=== PATIENT | female | born 1985 | race Caucasian/White ===

== ENCOUNTER 2022-01-04 13:32 | Outpatient (CLI) | payer OTHER, SELFPAY ==
[2022-01-04 21:24] LABS: Albumin* 4.7 g/dL (3.3-5.0); Chloride* 99 mmol/L (96-114); Sodium* 137 mmol/L (135-149)
[2022-01-04 21:25] LABS: Potassium* 3.4 mmol/L (3.6-5.1)
[2022-01-04 21:27] LABS: Bilirubin Direct* 0.2 mg/dL (0.0-0.5); Bilirubin Total* 0.7 mg/dL (0.1-1.5); Carbon Dioxide* 30 mmol/L (20-32); Creatinine* 0.6 mg/dL (0.5-1.5); Estimated Glomerular Filt Rate 118 ml/min; Total Protein* 7.6 g/dL (6.0-8.3)
[2022-01-04 21:28] LABS: Alanine Aminotransferase* 21 U/L (4-35); Alkaline Phosphatase* 59 U/L (40-150); Aspartate Amino Transferase* 29 U/L (12-35); Blood Urea Nitrogen* 13 mg/dL (5-24); Calcium* 9.6 mg/dL (8.4-10.6); Glucose* 92 mg/dL (60-115)
--- OUTSIDE RECORDS SUMMARY | 2022-01-11 23:15 | XMS_ITS | Encounter Summary ---
:1985 Author Organization [facility] Address [address] [place] [address] Care Team Providers Name Role Phone Augusto Robles, B.Brown., B.A.O. Primary Care Provider +1- [phone] Encounter Details Date Type Department Care Team Description 09/27/2020 Admin Visit Department of Family Medicine, [facility] [place] in [place], [place] [address] [place] [address] Social History Tobacco Use Types Packs/Day Years Used Date Smoking Tobacco: Never Assessed Alcohol Habits Answer Date Recorded How often do you have a drink containing alcohol? Monthly or less 08/17/2021 How many drinks containing alcohol do you have on a 1 or 2 08/17/2021 typical day when you are drinking? How often do you have six or more drinks on one Never 08/17/2021 occasion? Comment: Not asked Social Isolation Answer Date Recorded In a typical week, how many times do you More than three luis angel es a week 08/17/2021 talk on the phone with family, friends, or neighbors? How often do you get together with friends More than three t imes a week 08/17/2021 or relatives? How often do you attend catholic or Never 2021 jew services? Do you belong to any clubs or Yes 08/17/2021 organizations such as catholic groups, unions, fraternal or athletic groups, or school groups? How often do you attend meetings of the More than 4 times pe r year 08/17/2021 clubs or organizations you belong to? Are you now , , , Never 08/17/2021 , never or living with a partner? Physical Activity Answer Date Recorded On average, how many days per week do you engage in moderate to 3 days 08/17/2021 strenuous exercise (like walking fast, running, jogging, dancing, swimming, biking, or other activities that cause a light or heavy sweat)? On average, how many minutes do you engage in exercise at th is 120 min 08/17/2021 level? Stress Answer Date Recorded Do you feel stress - tense, restless, nervous, or anxious, N ot at all 08/17/2021 or unable to sleep at night because your mind is troubled all the time - these days? Financial Resource Strain Answer Date Recorded How hard is it for you to pay for the very basics like Not h eris at all 08/17/2021 food, housing, medical care, and heating? Intimate Partner Violence Answer Date Recorded Within the last year, have you been afraid of your partner o r No 08/17/2021 ex-partner? Within the last year, have you been humiliated or emotionall y No 08/17/2021 abused in other ways by your partner or ex-partner? Within the last year, have you been kicked, hit, slapped, or No 08/17/2021 otherwise physically hurt by your partner or ex-partner? Within the last year, have you been raped or forced to have any No 08/17/2021 kind of sexual activity by your partner or ex-partner? Food Insecurity Answer Date Recorded Within the past 12 months, you worried that your food would Never true 08/17/2021 run out before you got money to buy more. Within the past 12 months, the food you bought just didn't N ever true 08/17/2021 last and you didn't have money to get more. Transportation Needs Answer Date Recorded In the past 12 months, has lack of transportation kept you f rom No 08/17/2021 medical appointments or from getting medications? In the past 12 months, has lack of transportation kept you f rom No 08/17/2021 meetings, work, or getting things needed for daily living? Housing Stability Answer Date Recorded In the last 12 months, was there a time when you were not ab le No 08/17/2021 to pay the mortgage or rent on time? In the last 12 months, how many places have you lived? 1 08/17/2021 In the last 12 months, was there a time when you did not hav e a No 08/17/[address] or slept in a half-way (including now)? Sex Assigned at Date Recorded Female 08/17/2021 7:54 AM CDT documented as of this encounter Plan of Treatment Not on filedocumented as of this encounter Visit Diagnoses Not on filedocumented in this encounter Additional Health Concerns Infection Onset Date Last Indicated Resolved Time COVID19 Pending 09/26/2020 09/27/2020 09/27/2020 2:51 PM CDT documented as of this encounter Care Teams Control Clerk Repairs Relationship Specialty Start Date End Date Augusto Robles M.B., B.Ch., B.A.O. PCP - General Family Medicine 02/28/20 [address] [place] [address] documented as of this encounter
--- OUTSIDE RECORDS SUMMARY | 2022-01-11 23:15 | XMS_ITS | Encounter Summary ---
:1985 Author Organization [facility] Address [address] [place] [address] Care Team Providers Name Role Phone Augusto Robles, B.Ch., B.A.O. Primary Care Provider [phone]- [phone] Encounter Details Date Type Department Care Team Description 10/13/2020 Orders Only RST PCP [facility] Augusto Robles, Screening Lipid; Denise.Tommie, B.Ch., B.A .O. Monitoring For Therapeutic Drug Therapy [address] [place] [address] (Wo rk) Social History Tobacco Use Types Packs/Day Years [...] or relatives? How often do you attend voodoo or Never 2021 episcopalian services? Do you belong to any clubs or Yes 08/17/2021 organizations such as voodoo groups, unions, fraternal or athletic groups, or [...] minutes do you engage in exercise at is 120 min 08/17/2021 level? Stress Answer [...] place to sleep or slept in a detention (including now)? Sex Assigned at Date Recorded Female 08/17/2021 7:54 AM CDT documented as of this encounter Plan of Treatment Not on filedocumented as of this encounter Visit Diagnoses Diagnosis Screening Lipid Monitoring For Therapeutic Drug Therapy documented in this encounter Care Teams Surgical Supply Assistant Relationship Specialty Start Date End Date Augusto Robles M.B., B.Ch., B.A.O. PCP - General Family Medicine 02/28/[address] [place] [address] documented as of this encounter
--- OUTSIDE RECORDS SUMMARY | 2022-01-11 23:15 | XMS_ITS | Encounter Summary ---
:1985 Author Organization [facility] Address [address] [place] [address] Care Team Providers Name Role Phone Augusto Robles, B., B.A.O. Primary Care Provider [phone]- [phone] Reason for Referral Outpatient (Routine) - Closed Specialty Diagnoses / Procedures Referred By Contact Refer red To Contact Diagnoses Obstruction Gastric Outlet (HCC) Abnormal Computed Tomography Abdomen Alcira Lanier M.D. [facility] Procedures EGD (EsophagealGastroDuodenoscopy) [address] [place] [address] Referral ID Status Reason Start Date Expiration Date Visits Requ ested Visits Authorized [id number] Closed 08/18/2021 08/18/2022 1 1 Reason for Visit Outpatient (Routine) - Closed Specialty Diagnoses / Procedures Referred By Contact Refer red To Contact Diagnoses Obstruction Gastric Outlet (HCC) Abnormal Computed Tomography Abdomen Alcira Lanier M.D. [facility] Procedures EGD (EsophagealGastroDuodenoscopy) [address] [place] [address] Referral ID Status Reason Start Date Expiration Date Visits Requ ested Visits Authorized [id number] Closed 08/18/2021 08/18/2022 1 1 Encounter Details Date Type Department Care Team Description 09/10/2021 Hospital Division of Alcira Lanier M.D. [address] [place] [address] Obstruction Gastric Outlet (HCC); Encounter Gastroenterology in [place], HEALTH PROFESSOR, APPLIANCE SERVICE TECHNICIAN, DNAP [address] [place] [address] Abnormal Computed Tomography Abdomen [place], [place] [address] [place] [address] Social History Tobacco Use Types Packs/Day Years Used Date Smoking Tobacco: Never Smokeless Tobacco: Never Alcohol Habits Answer Date Recorded How often [...] or relatives? How often do you attend pentecostal or Never 2021 church services? Do you belong to any clubs or Yes 08/17/2021 organizations such as pentecostal groups, unions, fraternal or athletic groups, or [...] place to sleep or slept in a custodial (including now)? Education Answer Date Recorded What is the highest level of school Associate degree: academ [employer] program 08/17/2021 you have completed or the highest degree you have received? Sex Assigned at Date Recorded Female 08/17/2021 7:54 AM CDT documented as of this encounter Medications at Time of Discharge Medication Sig Dispensed Refills Start Date End Date escitalopram (LEXAPRO) 20 mg Take 20 mg by 0 07/06 tablet mouth daily. HYDROCHLOROTHIAZIDE ORAL 0 06/05/2013 phentermine (ADIPEX-P) 37.5 mg Take 37.5 mg by 0 07/04/2021 tablet mouth daily. documented as of this encounter Plan of Treatment Not on filedocumented as of this encounter Procedures Procedure Name Priority Date/Time Associated Diagnosis Comme nts SURGICAL PATHOLOGY Routine 09/10/2021 12:37 PM Re sults for this CDT procedure are i n the results section. UPPER GI ENDOSCOPY Routine 09/10/2021 12:07 PM Obstruction Gas tric Results for this CDT Outlet (HCC) procedure are in Abnormal Computed the result s Tomography Abdomen section. EGD Routine 09/10/2021 12:07 PM Obstruction Gastric (ESOPHAGEALGASTRODU CDT Outlet (HCC) ODENOSCOPY) Abnormal Computed Tomography Abdomen documented in this encounter Results Surgical Pathology (09/10/2021 12:37 PM CDT) Component Value Ref Test Analysis Performed Pathologis t Range Method Time At Signature 09/14/2021 DTL 11:17 AM CDT Report Nacho Marroquin M.D. 09/14/2021 DTL electronically 11:17 AM signed by CDT I verify that I have examined all relevant slides/materials for the specimen(s) and rendered or confirmed the diagnosis. Gross Received in formalin labeled with patient's name, medical 09/14/2021 DTL Description record number and stomach, antrum, body of stomach, 11:17 AM incisura are four pale severino-pink irregular soft tissues, CDT ranging from 0.1-0.3 cm in greatest dimension. Specimens are submitted en toto in cassette A1. ??Grossed by LMB. Disclaimer This test was developed using an analyte specific reag ent. 09/14/2021 DTL Its performance characteristics were determined by [facility] 11:17 AM [facility] in a manner consistent with CLIA requirements. This CDT test has not been cleared or approved by the U.S. Food and Drug Administration. Interpretation FINAL DIAGNOSIS 09/14/2021 DTL A. Stomach, antrum, body of stomach, incisura, endoscopic 11:17 AM biopsy: ??Antral and fundic mucosa with mild chronic CDT inflammation. ??An immunohistochemical stain for Helicobacter pylori is negative. Specimen (Source) Anatomical Collection Method Collection Time Re ceived Time Location / / Volume Laterality Biopsy (Stomach) 09/10/2021 12:37 PM CDT Narrative This result has an attachment that is no t available. Diandra Thompson LAB SURG PATH ORDERAB LES Performing Organization Address City/State/ZIP Code Phon e Number [facility] - [address] [place], [place] [address] [facility] [place] [address] [facility] [address] Upper GI Endoscopy (09/10/2021 12:07 PM CDT) Specimen (Source) Anatomical Collection Method Collection Time Re ceived Time Location / / Volume Laterality 09/10/2021 12:07 PM CDT Impressions [facility] - 09/10/2021 12:54 PM CDT Post-op Diagnoses: ? - Normal esophagus. ? - Normal stomach. Biopsied. ? - Normal examined duodenum. ? - Esophagogastric landmarks ident ified. Narrative [facility] - 09/10/2021 12:54 PM CDT Gonda 2 GI Patient Name: Dian Mcneill Date of : 1985 Age: 35 Gender: Female Procedure Date: 09/10/2021 Procedure: ? Upper GI endoscopy Providers: ? Merissa Aparicio MD Referring Provider: ?Alcira avilez MD Pre-op Diagnoses: ?Abnormal CT of the GI tract Recommendation: ? - Return to referring physician a s previously scheduled. Findings: ? The esophagus was normal. ? The stomach was normal. Biopsies were taken with a cold forceps for ? Helicobacter pylori testing. ? The examined duodenum was normal. ? Esophagogastric landmarks were id entified: the Z-line was found at 40 ? cm, the upper extent of the gastr ic folds was found at 40 cm and the ? site of hiatal narrowing was foun d at 40 cm from the incisors. Procedural Details: ? The patient was seen, evaluated, history reviewed, airway and heart-lung ? exams were performed by licensed provider and were satisfactory for ? planned level of sedation care. ? The risks, benefits and alternati ves for the procedure and sedation were ? discussed and informed consent wa s obtained. A procedural pause was ? conducted in the presence of assi sting personnel to verify the correct ? patient identity and procedure to be performed. Throughout the ? procedure, the patient's blood pr essure, pulse, and oxygen saturations ? were monitored continuously. The Gastroscope was introduced through the ? mouth, and advanced to the third part of duodenum. The upper GI ? endoscopy was accomplished withou t difficulty. The patient tolerated the ? procedure well. Complications: ? No immedia te complications. Estimated Blood Loss: ?Estimated blo od loss was minimal. Attending Participation: I personally pe rformed the entire procedure. Diandra Aparicio MD 09/10/2021 12:54:13 PM This report has been signed electronical ly. Number of Addenda: 0 Note Initiated On: 09/10/2021 12:07 PM Alcira Lanier M.D. GI PROCEDURE ORDERABLES Performing Organization Address City/State/ZIP Code Phon e Number [employer] [place] [employer] [facility] documented in this encounter Visit Diagnoses Diagnosis Obstruction Gastric Outlet (HCC) Abnormal Computed Tomography Abdomen documented in this encounter Administered Medications Inactive Administered Medications - up to 3 most recent administrations Medication Order MAR Action Action Date Dose Rate Site lactated ringers Continued from OR 09/10/2021 12:58 PM 20 mL/hr 20 mL/hr 20 mL/hr, intravenous, CDT Continuous, Starting on Mon09/10/21 at 1245, PACU & Post-Op documented in this encounter Care Teams Clay Artisan Relationship Specialty Start Date End Date Augusto Robles M.B., B.Ch., B.A.O. PCP - General Family Medicine 02/28/[address] [place] [address] documented as of this encounter
--- OUTSIDE RECORDS SUMMARY | 2022-01-11 23:15 | XMS_ITS | Encounter Summary ---
:1985 Author Organization [facility] Address [address] [place] [address] Care Team Providers Name Role Phone Augusto Robles, B., B.A.O. Primary Care Provider [phone]- [phone] Reason for Referral Outpatient (Routine) - Closed Specialty Diagnoses / Procedures Referred By Contact Refer red To Contact Diagnoses Obstruction Gastric Outlet (HCC) Abnormal Computed Tomography Abdomen Alcira Lanier M.D. [facility] Procedures EGD (EsophagealGastroDuodenoscopy) [address] [place] [address] Referral ID Status Reason Start Date Expiration Date Visits Requ ested Visits Authorized [id number] Closed 08/18/2021 08/18/2022 1 1 Reason for Visit Reason Comments obstruction gastric outlet comp Outpatient (Routine) - Closed Specialty Diagnoses / Referred By Contact Referred To Contact Procedures Gastroenterology and Diagnoses Obstruction Gastric Outlet (HCC) Eliana Whyte [facility] Hepatli Kwon M.D. [address] [place] [address] Referral ID Status Reason Start Date Expiration Date Visits Requ ested Visits Authorized [id number] Closed 08/03/2021 08/03/2022 1 1 Encounter Details Date Type Department Care Team Description 08/18/2021 Comprehensive Visit Division of Griselda Whyte M.D. [address] [place] [address] Abnormal Computed Tomography Abdomen (Pr imary Dx); Gastroenterology in Alcira Lanier M.D. [address] [place] [address] Obstruction Gastric Outlet (HCC) [place], [place] [address] [place] [address] Social History Tobacco Use Types Packs/Day Years [...] or relatives? How often do you attend temple or Never 2021 jewish services? Do you belong to any clubs or Yes 08/17/2021 organizations such as temple groups, unions, fraternal or athletic groups, or [...] place to sleep or slept in a correction (including now)? Education Answer Date Recorded What is the highest level of school Associate degree: academ [employer] program 08/17/2021 you have completed or the highest degree you have received? Sex Assigned at Date Recorded Female 08/17/2021 7:54 AM CDT documented as of this encounter Last Filed Vital Signs Vital Sign Reading Time Taken Comments Blood Pressure 109/71 08/18/2021 9:38 AM CDT Pulse 95 08/18/2021 9:38 AM CDT Temperature - - Respiratory Rate - - Oxygen Saturation - - Inhaled Oxygen Concentration - - Weight 68.4 kg (150 lb 12.7 oz) 08/18/2021 9:38 AM CDT Height 182 cm (5' 11.65) 08/18/2021 9:38 AM CDT Body Mass Index 20.65 08/18/2021 9:38 AM CDT documented in this encounter H&P Notes Alcira Lanier M.D. - 08/18/2021 10:00 AM CDT SUBJECTIVE CHIEF COMPLAINT/REASON FOR VISIT Abnormal CT imaging of the abdomen. HISTORY OF PRESENT ILLNESS Dian is a 35-year-old young lady who has known history of the bilateral kidney stones dating back to 2014. She was managed with lithotripsy. Since then, she has had close followup for the kidney stones. Most recently on 07/22/2021, she again developed severe bilateral flank pain that led on to vomiting. She was seen in the emergency department. Based on the documented examination, her abdomen wasbenign. However, there was bilateral tenderness in the flanks, especially at the costovertebral angles. She was managed conservatively. In the emergency department, she underwent CT imaging of the abdomen that reported bilateral multiple small nonobstructing renal stones. The largest measured 5 mm. Also incidentally reported was markedly distended stomach with fluid and retained food. There was note that the proximal duodenum was also dilated. No other abnormality was noted. After recovering from this acute event of the bilateral flank pain which was associated with vomiting which she feels was related to severe pain, she has not had any nausea or vomiting since then. Her appetite is good. She denies any retrosternal burning sensation. No dysphagia or odynophagia. Denies use of NSAIDs. Took NSAIDs several years ago for an IUD related pain. No other gastrointestinal complaints. Her bowel habit pattern is normal. MEDICAL HISTORY 1. History of anxiety disorder. 2. History of nephrolithiasis status post lithotripsy. SOCIAL HISTORY She works in the daycare business. Denies smoking or use of alcohol. OBJECTIVE PHYSICAL EXAMINATION General: On examination, she is a healthy-appearing lady, appears very comfortable, in no obvious distress. There is no pallor or icterus. Abdomen: Soft, nondistended, nontender. No hepatosplenomegaly. Neuro: Neurologically she is awake, alert, and oriented x3. ASSESSMENT / PLAN A 35-year-old lady with known history of nephrolithiasis who presented to the emergency department with bilateral flank pain in July 2021 and was incidentally noted to have a dilated stomach with retained food and fluid. She is here for further evaluation. No history to suggest gastric outlet obstruction at present. No risk factors for peptic ulcer disease. Currently asymptomatic. PLAN: EGD for evaluation of the stomach with gastric biopsies to rule out H. pylori. Alcira Lanier M.D. CT CT Job ID: [id number] documented in this encounter Plan of Treatment Not on filedocumented as of this encounter Visit Diagnoses Diagnosis Abnormal Computed Tomography Abdomen - P rimary Obstruction Gastric Outlet (HCC) documented in this encounter Care Teams Documentation Improvement Specialist Relationship Specialty Start Date End Date Augusto Robles M.B., B.Ch., B.A.O. PCP - General Family Medicine 02/28/20 [address] [place] [address] documented as of this encounter
--- OUTSIDE RECORDS SUMMARY | 2022-01-11 23:15 | XMS_ITS | Encounter Summary ---
:1985 Author Organization [facility] Address [address] [place] [address] Care Team Providers Name Role Phone Augusto Robles, B.Brown., B.A.O. Primary Care Provider [phone] Encounter Details Date Type Department Care Team Description 09/09/2021 Lab Department of [facility] Sav Lanier M.D. Preprocedural Lab Exam [facility] [address] [facility] [address] [place] [address] [place] [address] [facility] [phone] Social History Tobacco Use Types Packs/Day Years [...] or relatives? How often do you attend mandaeism or Never 2021 adventist services? Do you belong to any clubs or Yes 08/17/2021 organizations such as mandaeism groups, unions, fraternal or athletic groups, or [...] place to sleep or slept in a penitentiary (including now)? Education Answer Date Recorded What is the highest level of school Associate degree: [employer] program 08/17/2021 you have completed or the highest degree you have received? Sex Assigned at Date Recorded Female 08/17/2021 7:54 AM CDT documented as of this encounter Plan of Treatment Not on filedocumented as of this encounter Procedures Procedure Name Priority Date/Time Associated Diagnosis Comme nts SARS CORONAVIRUS-2 Routine 09/09/2021 8:40 AM Preprocedural La b Exam Results for this RNA, V CDT procedure are i n the results section. documented in this encounter Results SARS Coronavirus-2 RNA, V Asymptomatic (09/09/2021 8:40 AM CDT) [facility] gist Method Time Signature SARS-CoV-2 Swab, 09/09/2021 MKTO Specimen Nasopharynx 11:30 PM Source CDT SARS CoV-2 Undetected Undetected 09/09/2021 MKTO RNA, TMA 11:30 PM CDT Comment: SARS-CoV-2 RNA absent. This result does not rule out COVID-19 in the patient, as the sensitivity of the test depends o n the timing of the specimen collection and the quality of the specim en. Result should be correlated with patient's history and clinical presentat ion. ----ADDITIONAL INFORMATION---- This molecular amplification test was pe rformed using the Aptima SARS-CoV-2 assay ([employer] on the Needchecks tem under emergency use authorization (EUA) by the U.S. Food and Drug Administ ration. Fact sheets for this EUA assay can be fo und at the following links: For Healthcare Providers: https://www.fd a.gov/media/115928/download For Patients: https://www.fda.gov/media/ 703742/download Specimen Anatomical Collection Method Collection Time Receive d Time (Source) Location / / Volume Laterality Varies 09/09/2021 8:40 AM 7:14 (Nasopharynx) CDT PM CDT Alcira Lanier M.D. LAB MICROBIOLOGY - GENERAL O CALLUM Performing Organization Address City/State/ZIP Code Phon e Number [facility]- [address] [place] [address] [place] [address] [address] documented in this encounter Visit Diagnoses Diagnosis Preprocedural Lab Exam documented in this encounter Additional Health Concerns Infection Onset Date Last Indicated Resolved Time COVID19 Pending 09/08/2021 09/09/2021 09/09/2021 11:30 PM CDT documented as of this encounter Care Teams Contractor Buyer Relationship Specialty Start Date End Date Augusto Robles M.B., B.Ch., B.A.O. PCP - General Family Medicine 02/28/20 [address] [place] [address] documented as of this encounter
--- OUTSIDE RECORDS SUMMARY | 2022-01-11 23:15 | XMS_ITS | Encounter Summary ---
:1985 Author Organization [facility] Address [address] [place] [address] Care Team Providers Name Role Phone Augusto Robles, BJudy, B.A.O. Primary Care Provider [phone] Reason for Referral Outpatient (Routine) - Authorized Specialty Diagnoses / Procedures Referred By Contact Refer red To Contact Family Medicine Augusto Robles M.B., [facility], B.A.O. [address] [place] [phone] Referral ID Status Reason Start Date Expiration Date Visits V isits Requested Authorized [id number] Authorized 10/20/2021 10/20/2022 1 1 Encounter Details Date Type Department Care Team Description 10/20/2021 Orders Only RST PCP TH Geovanna Salguero M.D. Monitoring For [address] [place] [address] [place]rapeutic [place] [phone] (Wo rk) Social History Tobacco Use Types [...] or relatives? How often do you attend muslim or Never 2021 mosque services? Do you belong to any clubs or Yes 08/17/2021 organizations such as muslim groups, unions, fraternal or athletic groups, or [...] place to sleep or slept in a [place] [facility] [place] (including now)? Education Answer Date Recorded What is the highest level of school Associate degree: [employer] program 08/17/2021 you have completed or the highest degree you have received? Sex Assigned at Date Recorded Female 08/17/2021 7:54 AM CDT documented as of this encounter Plan of Treatment Scheduled Orders Name Type Priority Associated Diagnoses Order S [facility] Basic Metabolic Panel Lab Routine Monitoring For Ther apeutic Expected: 11/03/2021, Drug Therapy Expires: 2021 Scheduled Referrals Name Type Priority Associated Diagnoses Order S [facility] Family Medicine Outpatient Referral Routine Expec yovani: office visit 11/03/2021, (clinic) Expires: 04/18/2022 documented as of this encounter Visit Diagnoses Diagnosis Monitoring For Therapeutic Drug Therapy documented in this encounter Care Teams Verify Rep Relationship Specialty Start Date End Date Augusto Robles M.B., B.Ch., B.A.O. PCP - General Family Medicine 02/28/20 [address] [place] [address] documented as of this encounter
--- OUTSIDE RECORDS SUMMARY | 2022-01-11 23:15 | XMS_ITS | Encounter Summary ---
:1985 Author Organization [facility] Address [address] [place] [address] Care Team Providers Name Role Phone Augusto Robles, B.Ch., B.A.O. Primary Care Provider [phone] Encounter Details Date Type Department Care Team Description 07/13/2021 Orders Only RST PCP HLTH MNT Augusto Robles M.B., B.C h., Screening Lipid B.A.O. [address] [place], [place] [phone] (Wo rk) Social History Tobacco Use Types [...] or relatives? How often do you attend buddhist or Never 2021 protestant services? Do you belong to any clubs or Yes 08/17/2021 organizations such as buddhist groups, unions, fraternal or athletic groups, or [...] place to sleep or slept in a alf (including now)? Sex Assigned at Date Recorded Female 08/17/2021 7:54 AM CDT documented as of this encounter Plan of Treatment Scheduled Orders Name Type Priority Associated Diagnoses Order S chedule Lipid Panel Lab Routine Screening Lipid Expected: , Expires: 01/09/2022 documented as of this encounter Visit Diagnoses Diagnosis Screening Lipid documented in this encounter Care Teams Assistant Project Manager Relationship Specialty Start Date End Date Augusto Robles M.B., B.Ch., B.A.O. PCP - General Family Medicine 02/28/20 [address] [place] [address] documented as of this encounter
--- OUTSIDE RECORDS SUMMARY | 2022-01-11 23:15 | XMS_ITS | Encounter Summary ---
:1985 Author Organization [facility] Address [address] [place] [address] Care Team Providers Name Role Phone Augusto Robles, B.Ch., B.A.O. Primary Care Provider [phone] Encounter Details Date Type Department Care Team Description 04/13/2021 Orders Only RST PCP HLTH MNT Augusto Robles M.B., B.C h., B.A.O. [address] [place], [place] [phone] (Wo rk) Social History [...] do you attend mandaeism or Never 2021 mormonism services? Do you belong to any clubs [...] place to sleep or slept in a [facility] (including now)? Sex Assigned at Date Recorded Female 08/17/2021 7:54 AM CDT documented as of this encounter Plan of Treatment Not on filedocumented as of this encounter Visit Diagnoses Not on filedocumented in this encounter Care Teams Club Attendant Relationship Specialty Start Date End Date Augusto Robles M.B., B.Ch., B.A.O. PCP - General Family Medicine 02/28/20 [address] [place] [address] documented as of this encounter
--- OUTSIDE RECORDS SUMMARY | 2022-01-11 23:15 | XMS_ITS | Encounter Summary ---
:1985 Author Organization [facility] Address [address] [place] [address] Care Team Providers Name Role Phone Augusto Robles, B., B.A.O. Primary Care Provider [phone] Reason for Referral Outpatient (Routine) - Closed Specialty Diagnoses / Referred By Contact Referred To Contact Procedures Gastroenterology and Diagnoses Obstruction Gastric Outlet (HCC) Eliana Whyte [facility] Hepatology Diomedes Kwon [address] [place] [address] Referral ID Status Reason Start Date Expiration Date Visits Requ ested Visits Authorized [id number] Closed 08/03/2021 08/03/2022 1 1 LE WRITER Encounter Details Date Type Department Care Team Description 08/03/2021 [facility] Eliana Whyte Obstruction Gastric AND FAUSTINO Kwon M.D. Outlet (HCC) [address] (Primary Dx) [place] [address] [phone] Social History Tobacco Use Types Packs/Day Years [...] or relatives? How often do you attend gnosticist or Never 2021 samaritan services? Do you belong to any clubs or Yes 08/17/2021 organizations such as gnosticist groups, unions, fraternal or athletic groups, or [...] place to sleep or slept in a prison (including now)? Sex Assigned at Date Recorded Female 08/17/2021 7:54 AM CDT documented as of this encounter Plan of Treatment Scheduled Referrals Name Type Priority Associated Order Schedule Diagnoses Gastroenterology & Outpatient Routine Obstruction Gastric Ex pected: Hepatology Referral Referral Outlet (HCC) 08/04/19 22 (Approximate), Expires: 11/03/2022 documented as of this encounter Visit Diagnoses Diagnosis Obstruction Gastric Outlet (HCC) - Prima ry documented in this encounter Care Teams Shearer Screen Measurer And Trimmer Relationship Specialty Start Date End Date Augusto Robles M.B., B.Ch., B.A.O. PCP - General Family Medicine 02/28/20 [address] [place] [address] documented as of this encounter
--- OUTSIDE RECORDS SUMMARY | 2022-01-11 23:15 | XMS_ITS | Encounter Summary ---
:1985 Author Organization [facility] Address [address] [place] [address] Care Team Providers Name Role Phone Augusto Robles, B., B.A.O. Primary Care Provider [phone] Reason for Visit Outpatient (Routine) - Canceled Specialty Diagnoses / Procedures Referred By Contact Refer red To Contact Diagnoses Stomach Functional [facility] Procedures [place] Fluoro Less Than 1 Hour [facility] [address] [place] [phone] Referral ID Status Reason Start Date Expiration Date Visits V isits Requested Authorized [id number] Canceled 09/10/2021 09/10/2022 1 1 Encounter Details Date Type Department Care Team Description 09/10/2021 Hospital Encounter Department of Desi, [facility] Functional Radiology, [facility] in [facility] [place], [place] [address] [place] [address] [address] [place] [phone] Social History Tobacco Use Types Packs/Day Years [...] or relatives? How often do you attend mu-ism or Never 2021 anabaptist services? Do you belong to any clubs or Yes 08/17/2021 organizations such as mu-ism groups, unions, fraternal or athletic groups, or [...] place to sleep or slept in a senior living (including now)? Education Answer Date Recorded What is the highest level of school Associate degree: [employer] program 08/17/2021 you have completed or the [...] as of this encounter Visit Diagnoses Diagnosis Stomach Functional Disorder documented in this encounter Care Teams Flotation Tender Relationship Specialty Start Date End Date Augusto Robles M.B., B.Ch., B.A.O. PCP - General Family Medicine 02/28/20 [address] [place] [address] documented as of this encounter
--- OUTSIDE RECORDS SUMMARY | 2022-01-11 23:15 | XMS_ITS | Encounter Summary ---
:1985 Author Organization [facility] Address [address] [place] [address] Care Team Providers Name Role Phone Augusto Robles, B., B.A.O. Primary Care Provider [phone] Encounter Details Date Type Department Care Team Description 09/10/2021 Anesthesia Event Division of Priya Worley APRN, TUBING MILL SETTER, DNAP [address] [place] [phone] [facility], TUBING MILL SETTER[facility] DNAP [address] [place] [phone] [place], [place] [address] [place] [phone] Anesthesia Record Procedure Summary Procedure Name Responsible Anesthesia Start Anesthesia Stop Time Anesthesiologist Time EGD Ethan Worley APRN, 09/10/21 1213 1255 (ESOPHAGEALGASTRODU TUBING MILL SETTER, DNAP ODENOSCOPY) Events Date Time Event Comment 09/10/2021 1058 1213 An Start Machine/Equipmen t Checked Infection Precautions Foll owed Procedure/Site Verified NPO Sta tus Verified Supine Standard ASA Mon itors Applied 1219 An Induction 1223 An Intubation 1224 Turnover to Proceduralist 1235 Proc Start 1238 Turnover to ANE Staff 1238 Proc Fin 1246 Airway Removal Criteria Met 1249 Extubation/Airway Removed 1250 an stop data 1255 An End I completed my h andoff to the receiving staff during [facility] we 1. Identified the patient 2. Ident ified the responsible provider 3. Revi ewed the pertinent medical history 4. Discussed the surgical course 5. Review ed intra-op anesthesia management and i ssues during anesthesia 6. Set expectati ons for post-procedure period 7. Allowe d opportunity for questions and ac knowledgement of understanding. Name Total fentanyl injection 50 mcg/mL 100 mcg lidocaine 2% (mg) injection 40 mg propofol 10 mg/mL 170 mg propofol 10 mg/mL infusion 176.13 mg succinylcholine 20 mg/mL injection 100 mg ondansetron 4 mg/2 mL injection 4 mg dexamethasone 4 mg/mL injection 4 mg Lactated Ringers Free Drip 700 mL Agents No agents on file. Blood No blood administrations on file. Lines, Drains, and Airways Type Details Placement Removal Peripheral IV Placement Date: 09/10/21; 09/10/21 1118 by 09/10 1322 by Placement Time: 1118; Bridget Flores, R.N. G Bridget pereira, Catheter Size: 22 G; R.N. Orientation: Lower, Posterior, Right; Location: Forearm; Site Prep: Alcohol; Technique: Anatomical landmarks; Inserted by: Leslie Rn; Insertion Attempts: 1; Removal Date: 09/10/21; Removal Time: 1322; Removal Reason: Patient discharged ETT Placement Date: 09/10/21; 09/10/21 1223 by 09/10 1249 by Placement Time: 1223 Eliana More, Ethan Lewis, (created via procedure TRAVELING FREIGHT AGENT, TUBING MILL SETTER, DNAP TRAVELING FREIGHT AGENT, CR NA, DNAP documentation); Mask Ventilation: Not attempted; Type: Standard ETT; Single Lumen Tube Size: 7 mm; Cuffed: Yes; Blade Size: Khoury 2; Location: Oral; Grade View: Grade 2B; Insertion Attempts: 1; Placement Verification: Bilateral breath sounds, Positive ETCO2, Symmetrical chest wall movement; Removal Date: 09/10/21; Removal Time: 1249 documented in this encounter Social History Tobacco Use Types Packs/Day Years [...] do you attend temple or Never 2021 buddhism services? Do you belong to any clubs [...] or slept in a alf (including now)? Education Answer Date Recorded What is the highest level of school Associate degree: [employer] program 08/17/2021 you have completed or the highest degree you have received? Sex Assigned at Date Recorded Female 08/17/2021 7:54 AM CDT documented as of this encounter OR Notes Anesthesia Postprocedure Evaluation - Ethan Worley APRN, CRNA, DNAP - 09/10/2021 12:55 PM CDT Patient: Dian Mcneill Procedure Summary Date: 09/10/21 Room / Location: Division of Gastroenterology in [place], [place] Anesthesia Start: 1213 Anesthesia Stop: 1255 Procedure: EGD (ESOPHAGEALGASTRODUODENOSCOPY) Diagnosis: Obstruction Gastric Outlet (HCC) Abnormal Computed Tomography Abdomen Scheduled Providers: Eliana More APRN, CRNA, DNAP Responsible Provider: Ethan Worley APRN, CRNA, DNAP Anesthesia Type: general ASA Status: 2 Anesthesia Type: general Last vitals Vitals Value Taken Time BP 151/134 09/10/21 1253 Temp 36.8 ??C 09/10/21 1254 Pulse 103 09/10/21 1255 Resp 23 09/10/21 1255 SpO2 98 % 09/10/21 1255 Vitals shown include unvalidated device data. Please reference Vitals flowsheet for most recent vital signs. Anesthesia Post Evaluation Patient Disposition: dismissal Cardiovascular status: hemodynamics (HR & BP) acceptable Respiratory status: patent airway with spontaneous effort Temperature: normothermic Oxygen requirements: room air Level of consciousness: awake Pain score: pain adequately controlled and/or at baseline Post Op nausea/vomiting: none Hydration status: euvolemic Anesthesia Procedure Notes - Eliana More APRN, CRNA, DNAP - 09/10/2021 12:34 PM CDTAssociated Order(s): Airway Airway Date/Time: 09/10/2021 12:23 PM Performed by: Eliana More APRN, CRNA, DNAP Authorized by: Eliana More APRN, CRNA, DNAP Patient location during procedure: OR / Procedure Area PROCEDURE DETAILS: Mask difficulty assessment: not attempted Final airway type: direct laryngoscopy, intubation Laryngeal Manipulation: no Final airway difficulty of direct laryngoscopy (DL): 1-some difficulty Final best view of glottic structures - Cormack/Lehane Score: grade 2B ETT location: oral Adult blade type: Khoury 2 Adult tube size: 7 Adult ETT distance at teeth/gum: 21 Oral tube type: standard ETT Cuffed: yes Number of attempt to successful placement: 1 Airway confirmation: bilateral breath sounds, positive ETCO2 and bilateral chest rise Other previous techniques attempted: none PRE PROCEDURE DETAILS: Pre evaluation for airway management: procedure Urgency: elective Preoxygenation: bag valve mask SEDATION / ANESTHESIA Anesthesia method: anesthesia POST PROCEDURE DETAILS: Procedure outcome: successful Airway event: no complications ATTESTATION STATEMENT Anesthesia Preprocedure Evaluation - Maximliian Coleman M.D., M.B.O.E. - 09/10/2021 10:57 AM CDT Preprocedure Anesthesia & H&P Assessment Procedure Summary Date/Time: 09/10/21 1115 Scheduled providers: Eliana More APRN, CRNA, DNAP Procedure: EGD (ESOPHAGEALGASTRODUODENOSCOPY) Diagnosis: Obstruction Gastric Outlet (HCC) [K31.1] Abnormal Computed Tomography Abdomen [R93.5] Location: Division of Gastroenterology in [place], [place] Pertinent components of the patient's history including current problem list, medical history, surgical history, family history, social history, medications and allergies were reviewed. Present illnessand pre-op diagnosis were confirmed. The planned surgery / procedure was verified with the patient /legal guardian. The patient's general health condition remains unchanged RELEVANT COMORBID CONDITIONS No relevant active problems OBJECTIVE PHYSICAL EXAMINATION Airway (HEENT) Mallampati: II TM Distance: >3 FB Neck ROM: Full Mouth Opening: >3 cm Cardiovascular Rate: Normal Pulmonary Pulmonary Assessment: Non labored General / Constitutional Constitutional Assessment: Thin Neurological Neurologic Assessment:??alert Dental Dental Assessment: dentition intact ASSESSMENT / PLAN ANESTHESIA PLAN ASA: 2 Anesthesia Plan: general Patient seen and allergies reviewed, anesthesia plan and risks discussed directly with patient /legal guardian or through an construction plant operator. The use of blood products not discussed Approval to Proceed: approved for anesthesia documented in this encounter Plan of Treatment Not on filedocumented as of this encounter Procedures Procedure Name Priority Date/Time Associated Comments Diagnosis LDA ANE ENDOTRACHEAL Routine 09/10/2021 12:23 Res ults for this AIRWAY PM CDT procedure are i n the results section. documented in this encounter Results LDA ANE ENDOTRACHEAL AIRWAY (09/10/2021 12:23 PM CDT) Narrative Eliana More APRN, CRNA, DNAP - 09/10/2021 12:23 PM CDT Eliana More APRN, CRNA, DNAP ? 09/10/2021 12:35 PM Airway Date/Time: 09/10/2021 12:23 PM Performed by: Eliana More APRN, CRNA, DNAP Authorized by: Eliana More APR N, CRNA, DNAP Patient location during procedure: OR / Procedure Area PROCEDURE DETAILS: Mask difficulty assessment: not attempte d Final airway type: direct laryngoscopy, intubation Laryngeal Manipulation: no ?? Final airway difficulty of direct laryng oscopy (DL): 1-some difficulty Final best view of glottic structures - Cormack/Lehane Score: grade 2B ETT location: oral Adult blade type: Khoury 2 Adult tube size: 7 Adult ETT distance at teeth/gum: 21 Oral tube type: standard ETT Cuffed: yes Number of attempt to successful placemen t: 1 Airway confirmation: bilateral breath so unds, positive ETCO2 and bilateral chest rise Other previous techniques attempted: non e PRE PROCEDURE DETAILS: Pre evaluation for airway management: pr ocedure Urgency: elective Preoxygenation: bag valve mask SEDATION / ANESTHESIA Anesthesia method: anesthesia POST PROCEDURE DETAILS: ? Procedure outcome: successful ?? Airway event: no complications ATTESTATION STATEMENT Eliana More APRN, SHANNA BESS ANESTHESIA ORDERA BLES documented in this encounter Visit Diagnoses Not on filedocumented in this encounter Administered Medications Inactive Administered Medications - up to 3 most recent administrations Medication Order MAR Action Action Date Dose Rate Site dexAMETHasone injection (DECADRON) Given 09/10/2021 12:25 PM CDT 4 mg intravenous, As needed, Starting on Mon09/10/21 at 1225, Anesthesia Intra-op fentaNYL injection (SUBLIMAZE) Given 09/10/2021 12:26 PM CDT 50 mcg intravenous, As needed, Starting on Mon09/10/21 at 1216, Anesthesia Intra-op Given 09/10/2021 12:16 PM CDT 50 mcg lactated ringers New Bag 09/10/2021 12:13 PM CDT intravenous, Continuous Infusion: Per Instructions PRN, Starting on Mon09/10/21 at 1213, Anesthesia Intra-op lidocaine (PF) (cardiac) injection Given 09/10/2021 12:19 PM CDT 40 mg intravenous, As needed, Starting on Mon09/10/21 at 1219, Anesthesia Intra-op ondansetron (PF) injection (ZOFRAN) Given 09/10/2021 12:25 PM CDT 4 mg intravenous, As needed, Starting on Mon09/10/21 at 1225, Anesthesia Intra-op propofol 10 mg/mL infusion Rate/Dose 09/10/2021 100 mcg/kg/min 41.04 (DIPRIVAN) Change 12:37 PM CDT mL/hr intravenous, Continuous Infusion: Per Instructions PRN, Starting on Mon09/10/21 at 1222, Anesthesia Intra-op Rate/Dose Change 09/10/2021 12:28 PM CDT 175 mcg/kg/min 71.82 mL/hr New Bag 09/10/2021 12:22 PM CDT 150 mcg/kg/min 61.56 mL/hr propofoL injection (DIPRIVAN) Given 09/10/2021 12:20 PM CDT 170 mg intravenous, As needed, Starting on Mon09/10/21 at 1220, Anesthesia Intra-op succinylcholine (PF) injection (ANECTINE ) Given 09/10/2021 12:21 PM CDT 100 mg intravenous, As needed, Starting on Mon09/10/21 at 1221, Anesthesia Intra-op documented in this encounter Care Teams Wide Area Network Administrator Relationship Specialty Start Date End Date Augusto Robles M.B., B.Ch., B.A.O. PCP - General Family Medicine 02/28/20 [address] [place] [address] documented as of this encounter
--- OUTSIDE RECORDS SUMMARY | 2022-01-11 23:15 | XMS_ITS | Encounter Summary ---
:1985 Author Organization [facility] Address [address] [place] [address] Care Team Providers Name Role Phone Augusto Robles, B.Brown., B.A.O. Primary Care Provider [phone] Reason for Visit Reason Comments COVID Inquiry Encounter Details Date Type Department Care Team Description 09/24/2020 Clinical Communication Central Appointment Prescheduli DOE em Office in [address] [address] Social History Tobacco Use Types Packs/Day Years [...] or relatives? How often do you attend pentecostalism or Never 2021 restoration services? Do you belong to any clubs or Yes 08/17/2021 organizations such as pentecostalism groups, unions, fraternal or athletic groups, or [...] AM CDT documented as of this encounter Miscellaneous Notes Telephone Encounter - Shannon Perry - 09/24/2020 12:44 PM CDT What is the purpose of the call?: Requesting Testing Only Request Testing In the past 14 days are any of the following symptoms new to you and not related to an existing health condition?: No symptoms noted In the past 14 days have you had close contact* with a person who has a LABORATORY CONFIRMED case ofCOVID-19?: Yes exposure noted. [place] patient, instruct to quarantine, testing indicated (End Screening) Testing Recommendation Endpoint Is testing recommended? : Recommended to test Plan: Endpoint recommendation: Testing indicated, advised to be swabbed for COVID-19 Only , sent to [facility] [place] [facility] located at [address]. You must schedule an appointment for testing at this location. Please call [phone] during the hours of 7 am to 6 pm (M-F) or 9 am to 4:00pm (Sat and Sun) for an appointment time. Testing hours are 8 am to 12 noon every day. When you arrive at the testing site: Remain in your vehicle and check-in by calling the number listed on the signage at the testing site or provided to you at the time you schedule your testing appointment. and Please avoid using public transportation per CDC recommendation. If you do not have personal transportation please self-quarantine until a personal transportation option is available. *Reminder if sending patient for testing in [facility] or [facility], route encounter to the correct testing pool. documented in this encounter Plan of Treatment Not on filedocumented as of this encounter Visit Diagnoses Not on filedocumented in this encounter Care Teams Chinese Herbalist Relationship Specialty Start Date End Date Augusto Robles M.B., B.Ch., B.A.O. PCP - General Family Medicine 02/28/20 [address] [place] [address] documented as of this encounter
--- OUTSIDE RECORDS SUMMARY | 2022-01-11 23:15 | XMS_ITS | Clinical Summary ---
:1985 Author Organization [facility] Address [address] [place] [address] Care Team Providers Name Role Phone Augusto Robles, B.Brown., B.A.O. Primary Care Provider [phone] Source Comments Patient records contain information from all sites at [facility]. For routine questions regarding patient records, call [phone] during business hours, M-F 8:00 AM - 5:00 PM Central Time. Record requests for emergency care only can be directed to [phone] at any time.[facility] Allergies No known active allergies Medications Medication Sig Dispensed Refills Start Date End Date Status HYDROCHLOROTHIAZIDE ORAL 0 06/05/2013 Active escitalopram (LEXAPRO) 20 Take 20 mg by 0 07/20/2021 Active mg tablet mouth daily. phentermine (ADIPEX-P) 37.5 Take 37.5 mg 0 2 Active mg tablet by mouth daily. Encounters Date Type Specialty Care Team Description 10/20/2021 Orders Only Geovanna Hamilton M.D. Monitor ing For Therapeutic Drug Therapy from Last 3 Months Social History Tobacco Use Types Packs/Day Years [...] or relatives? How often do you attend oriental orthodox or Never 2021 islam services? Do you belong to any clubs or Yes 08/17/2021 organizations such as oriental orthodox groups, unions, fraternal or athletic groups, or [...] place to sleep or slept in a usp (including now)? Education Answer Date Recorded What is the highest level of school Associate degree: academ [employer] program 08/17/2021 you have completed or the highest degree you have received? Sex Assigned at Date Recorded Female 08/17/2021 7:54 AM CDT Last Filed Vital Signs Vital Sign Reading Time Taken Comments Blood Pressure 101/59 09/10/2021 1:15 PM CDT Pulse 109 09/10/2021 1:20 PM CDT Temperature 36.8 ??C (98.2 ??F) 09/10/2021 12:54 PM CDT Respiratory Rate 18 09/10/2021 1:20 PM CDT Oxygen Saturation 100% 09/10/2021 1:20 PM CDT Inhaled Oxygen Concentration - - Weight 68.4 kg (150 lb 12.7 oz) 08/18/2021 9:38 AM CDT Height 182 cm (5' 11.65) 08/18/2021 9:38 AM CDT Body Mass Index 20.65 08/18/2021 9:38 AM CDT Plan of Treatment Health Maintenance Due Date Last Done Comments Cervical Cancer Screening 1985 Creatinine Level 1983 Fasting Lipid Panel 1985 HIV Screening 1985 Hepatitis C Screening 1985 Potassium Level 1983 Sodium Level 1983 COVID-19 Vaccine (#1) 05/24/1984 Hepatitis B Vaccines (2 of 11/12/2010 10/15/2010 3 - Hep B Twinrix 3-dose series) Depression Screening 06/05/2021 (Annual PHQ-2) Influenza Vaccine (#1) 2022 03/24/2016 DTaP,Tdap,and Td Vaccines 03/24/2026 03/24/2016, 11/11/1994 , (7 - Td or Tdap) 06/28/1991, Additional history exists Pneumococcal vaccine (0-64 Aged Out No lo nger eligible years) based on patient 's age to complete this topic Insurance Payer Benefit Plan / Subscriber ID Effective Phone Address T ype Group Dates [facility] [id number] 2017-Prese [address] Medicaid HMO [place] [address] [place] [address] [phone] [place] [address] Care Teams Day Light Relief Operator Relationship Specialty Start Date End Date Augusto Robles M.B., B.Ch., B.A.O. PCP - General Family Medicine 02/28/20 [address] [place] [address]
--- OUTSIDE RECORDS SUMMARY | 2022-01-11 23:15 | XMS_ITS | Encounter Summary ---
:1985 Author Organization [facility] Address [address] [place] [address] Care Team Providers Name Role Phone Augusto Robles, B.Brown., B.A.O. Primary Care Provider [phone] Encounter Details Date Type Department Care Team Description 08/23/2021 Episode Changes Division of Gastroenterology in [place], [place] [address] [place] [address] Social History Tobacco Use Types Packs/Day [...] or relatives? How often do you attend christianity or Never 2021 shinto services? Do you belong to any clubs or Yes 08/17/2021 organizations such as christianity groups, unions, fraternal or athletic groups, or [...] highest level of school Associate degree: academ [employer] program 08/17/2021 you have completed or the highest degree you have received? Sex Assigned at Date Recorded Female 08/17/2021 7:54 AM CDT documented as of this encounter Plan of Treatment Not on filedocumented as of this encounter Visit Diagnoses Not on filedocumented in this encounter Care Teams Gravity Prospector Relationship Specialty Start Date End Date Augusto Robles M.B., B.Ch., B.A.O. PCP - General Family Medicine 02/28/20 [address] [place] [address] documented as of this encounter
--- OUTSIDE RECORDS SUMMARY | 2022-01-11 23:15 | XMS_ITS | Encounter Summary ---
:1985 Author Organization [facility] Address [address] [place] [address] Care Team Providers Name Role Phone Augusto Robles, B.Ch., B.A.O. Primary Care Provider [phone] Reason for Visit Reason Onset Date Comments Testing For Upper Respiratory Virus Symptoms 09/26/2020 Encounter Details Date Type Department Care Team Description 09/26/2020 External Outreach Department of [facility] Nathaly Hein ntact With And MedicineRyne, (Suspected) Exp osure Professional and P.A.-C. To COVID-19 ([facility] in [address] [place] [address] lvd Dx) [place], [place] [address] [address] [place], [place] [phone] [address] (Work) [phone] Social History Tobacco Use Types Packs/Day Years [...] or relatives? How often do you attend yarsani or Never 2021 mu-ism services? Do you belong to any clubs or Yes 08/17/2021 organizations such as yarsani groups, unions, fraternal or athletic groups, or [...] place to sleep or slept in a skilled nursing (including now)? Sex Assigned at Date Recorded Female 08/17/2021 7:54 AM CDT documented as of this encounter Progress Notes Nicolás Renteria R.N. - 09/26/2020 12:02 PM CDT Encounter created for symptomatic infectious disease screening with possible COVID, Influenza, RSV, and/or Group A Strep testing. documented in this encounter Plan of Treatment Not on filedocumented as of this encounter Procedures Procedure Name Priority Date/Time Associated Comments Diagnosis SARS CORONAVIRUS 2, Routine 09/27/2020 10:50 Resu lts for this PCR, V AM CDT procedure are i n the results section. documented in this encounter Results SARS Coronavirus 2, PCR, V (09/27/2020 10:50 AM CDT) [facility] Method Time Signature SARS-Coronavi Undetected Undetected 09/27/2020 ECLR dannie-2, PCR 3:37 PM CDT Comment: SARS-CoV-2 RNA absent. ?? ----ADDITIONAL INFORMATION---- This RT-PCR test using the Xpert Xpress SARS-CoV-2/Flu/RSV assay ([employer] performed on the [employer] rt DX systems has received Emergency Use Authorization (EU A) by the U.S. Food and Drug Administration. Performanc e characteristics were verified by [facility] inic in a manner consistent with CLIA requirements . Fact sheets for this Emergency Use Autho rization (EUA) assay can be found at the following link s: For Healthcare Providers: https://www.fda.gov/media/228090/downloa d For Patients: https://www.fda.gov/media/001988/downloa d Specimen Source Nasopharyngeal Swab 09/27/2020 2:5 1 PM CDT ECLR Specimen Anatomical Collection Method Collection Time Receive d Time (Source) Location / / Volume Laterality Varies 09/27/2020 10:50 09/27/2020 2:50 AM CDT PM CDT Ryne Hein P.A.-C. LAB MICROBIOLOGY - GENERAL O CALLUM Performing Organization Address City/State/ZIP Code Phon e Number [facility]- [address] [place] [phone] [facility] [place] [place] [address] [address] documented in this encounter Visit Diagnoses Diagnosis Contact With And (Suspected) Exposure To COVID-19 - Primary documented in this encounter Additional Health Concerns Infection Onset Date Last Indicated Resolved Time COVID19 Pending 09/26/2020 09/27/2020 09/27/2020 2:51 PM CDT documented as of this encounter Care Teams Vessel Liner Relationship Specialty Start Date End Date Augusto Robles M.B., B.Ch., B.A.O. PCP - General Family Medicine 02/28/20 [address] [place] [address] documented as of this encounter
--- OUTSIDE RECORDS SUMMARY | 2022-01-11 23:15 | XMS_ITS | Encounter Summary ---
:1985 Author Organization [facility] Address [address] [place] [address] Care Team Providers Name Role Phone Augusto Robles, B.Brown., B.A.O. Primary Care Provider [phone]- [phone] Encounter Details Date Type Department Care Team Description 09/10/2021 Ancillary Procedure Department of Gastroenterology Social History Tobacco Use Types Packs/Day Years [...] you attend oriental orthodox or Never 2021 zoroastrianism services? Do you belong to any clubs [...] or slept in a m[facility] (including now)? Education Answer Date Recorded What is the highest level of school Associate degree: academ Eligible program 08/17/2021 you have completed or the highest degree you have received? Sex Assigned at Date Recorded Female 08/17/2021 7:54 AM CDT documented as of this encounter Plan of Treatment Not on filedocumented as of this encounter Procedures Procedure Name Priority Date/Time Associated Comments Diagnosis GASTROENTEROLOGY IMAGE Routine 09/10/2021 12:10 R esults for this EXAM PM CDT procedure are i n the results section. documented in this encounter Results Upper GI endoscopy-Gastroenterology Image Exam (09/10/2021 12:10 PM CDT) Specimen (Source) Anatomical Collection Method Collection Time Re ceived Time Location / / Volume Laterality 09/10/2021 12:07 PM CDT Narrative [facility] - 09/10/2021 12:57 PM CDT This order has been created and auto-finalized to support the import of images acquired without order. The clini kimberley documentation to support these images can be found on the encounter nadeem t produced images. Provider Not In System IMG NON RAD IMAGING PROCEDUR ES Performing Organization Address City/State/ZIP Code Phon e Number [facility] NA documented in this encounter Visit Diagnoses Not on filedocumented in this encounter Care Teams Supervisor [employer] Relationship Specialty Start Date End Date Augusto Robles M.B., B.Ch., B.A.O. PCP - General Family Medicine 02/28/20 [address] [place] [address] documented as of this encounter
--- OUTSIDE RECORDS SUMMARY | 2022-01-11 23:15 | XMS_ITS | Encounter Summary ---
:1985 Author Organization [facility] Address [address] [place] [address] Care Team Providers Name Role Phone Augusto Robles, B.ChPriscila, B.A.O. Primary Care Provider [phone]- [phone] Encounter Details Date Type Department Care Team Description 01/21/2021 Orders Only RST PCP HL MNT Augusto Robles Monitorin g For Therapeutic Tra, Moni, B.A .O. Drug Therapy [address] [place] [address] (Wo rk) Social History Tobacco Use Types [...] or relatives? How often do you attend latter day or Never 2021 jew services? Do you belong to any clubs or Yes 08/17/2021 organizations such as latter day groups, unions, fraternal or athletic groups, or [...] place to sleep or slept in a fpc (including now)? Sex Assigned at Date Recorded Female 08/17/2021 7:54 AM CDT documented as of this encounter Plan of Treatment Not on filedocumented as of this encounter Visit Diagnoses Diagnosis Monitoring For Therapeutic Drug Therapy documented in this encounter Care Teams Garageman Relationship Specialty Start Date End Date Augusto Robles M.B., B.Ch., B.A.O. PCP - General Family Medicine 02/28/20 [address] [place] [address] documented as of this encounter
== END 2022-01-04 13:33 | disposition home or self-care (01) ==
PROVIDERS: PCP Family Medicine; Visit Provider Dermatology
DX: Z79.899 Other long term (current) drug therapy (principal); L94.0 Localized scleroderma [morphea]
CPT/HCPCS: 80053; 80076

== ENCOUNTER 2022-01-12 09:23 | Outpatient (CLI) | payer OTHER, SELFPAY ==
--- OUTSIDE RECORDS SUMMARY | 2022-01-12 09:26 | XMS_ITS | Encounter Summary ---
:1985 Author Organization [facility] Address [address] [place] [address] Care Team Providers Name Role Phone Augusto Robles, B., B.A.O. Primary Care Provider [phone]- [phone] Encounter Details Date Type Department Care Team Description 09/10/2021 Anesthesia Event Division of Priya Worley APRN, REPERTOIRE MANAGER, DNAP [address] [place] [phone] [facility], REPERTOIRE MANAGER, DNAP [address] [place] [phone] [place], [place] [address] [place] [phone] Anesthesia Record Procedure Summary Procedure Name Responsible Anesthesia Start Anesthesia Stop Time Anesthesiologist Time EGD Ethan Worley APRN, 09/10/21 1213 1255 (ESOPHAGEALGASTRODU REPERTOIRE MANAGER, DNAP ODENOSCOPY) Events Date Time Event Comment [...] h andoff to the receiving staff during [facility] we 1. Identified the patient 2. Ident [...] Eliana More, Ethan Lewis, (created via procedure LAUNDRY OPERATOR FINISHING, REPERTOIRE MANAGER, DNAP LAUNDRY OPERATOR FINISHING, CR NA, DNAP documentation); Mask Ventilation: Not [...] or relatives? How often do you attend spiritism or Never 2021 adventist services? Do you belong to any clubs or Yes 08/17/2021 organizations such as spiritism groups, unions, fraternal or athletic groups, or [...] place to sleep or slept in a m[facility] (including now)? Education Answer Date Recorded What is the highest level of school Associate degree: [employer] program 08/17/2021 you have completed or the highest degree you have received? Sex Assigned at Date Recorded Female 08/17/2021 7:54 AM CDT documented as of this encounter OR Notes Anesthesia Postprocedure Evaluation - Ethan Worley APRN, CRNA, DNAP - 09/10/2021 12:55 PM CDT Patient: Dian Mcneill Procedure Summary Date: 09/10/21 Room / Location: Division of Gastroenterology in [place], [place] Anesthesia Start: 1213 Anesthesia Stop: 1255 [...] complications ATTESTATION STATEMENT Anesthesia Preprocedure Evaluation - Maximilian Coleman M.D., M.B.O.E. - 09/10/2021 10:57 AM CDT Preprocedure Anesthesia & H&P Assessment Procedure Summary Date/Time: 09/10/21 1115 Scheduled providers: Eliana More APRN, CRNA, DNAP Procedure: EGD (ESOPHAGEALGASTRODUODENOSCOPY) Diagnosis: Obstruction Gastric Outlet (HCC) [K31.1] Abnormal Computed Tomography Abdomen [R93.5] Location: Division of Gastroenterology in [place], [place] Pertinent components of the patient's history [...] with patient /legal guardian or through an paraprofessional interpreter. The use of blood products not discussed [...] Intra-op documented in this encounter Care Teams Assistant Commissioner Relationship Specialty Start Date End Date Augusto Robles M.B., B.Ch., B.A.O. PCP - General Family Medicine 02/28/20 [address] [place] [address] documented as of this encounter
--- OUTSIDE RECORDS SUMMARY | 2022-01-12 09:26 | XMS_ITS | Encounter Summary ---
:1985 Author Organization [facility] Address [address] [place] [address] Care Team Providers Name Role Phone Augusto Robles, B.Brown., B.A.O. Primary Care Provider [phone]- [phone] Encounter Details Date Type Department Care Team [...] or relatives? How often do you attend islam or Never 2021 synagogue services? Do you belong to any clubs or Yes 08/17/2021 organizations such as islam groups, unions, fraternal or athletic groups, or [...] to sleep or slept in a senior care (including now)? Education Answer Date Recorded What is the highest level of school Associate degree: academ [employer] program 08/17/2021 you have completed or the [...] on filedocumented in this encounter Care Teams Hangersmith Relationship Specialty Start Date End Date Augusto Robles M.B., B.Ch., B.A.O. PCP - General Family Medicine 02/28/20 [address] [place] [address] documented as of this encounter
--- OUTSIDE RECORDS SUMMARY | 2022-01-12 09:26 | XMS_ITS | Encounter Summary ---
:1985 Author Organization [facility] Address [address] [place] [address] Care Team Providers Name Role Phone Augusto Robles, B.Ch., B.A.O. Primary Care Provider [phone]- [phone] Encounter Details Date Type Department Care Team Description 04/13/2021 Orders Only RST PCP HLTH MNT Augusto Robles M.B., B.C h., B.A.O. [address] [place], [place] [phone] (Wo rk) Social History [...] or relatives? How often do you attend anabaptist or Never 2021 congregational services? Do you belong to any clubs or Yes 08/17/2021 organizations such as anabaptist groups, unions, fraternal or athletic groups, or [...] place to sleep or slept in a group home (including now)? Sex Assigned at Date Recorded Female 08/17/2021 7:54 AM CDT documented as of this encounter Plan of Treatment Not on filedocumented as of this encounter Visit Diagnoses Not on filedocumented in this encounter Care Teams Ceo And Founder Relationship Specialty Start Date End Date Augusto Robles M.B., B.Ch., B.A.O. PCP - General Family Medicine 02/28/20 [address] [place] [address] documented as of this encounter
--- OUTSIDE RECORDS SUMMARY | 2022-01-12 09:26 | XMS_ITS | Encounter Summary ---
:1985 Author Organization [facility] Address [address] [place] [address] Care Team Providers Name Role Phone Augusto Robles, B., B.A.O. Primary Care Provider [phone] Reason for Referral Outpatient (Routine) - Closed Specialty Diagnoses / Referred By Contact Referred To Contact Procedures Gastroenterology and Diagnoses Obstruction Gastric Outlet (HCC) Eliana Whyte [facility] Hepatology Diomedes Kwon [address] [place] [address] Referral ID Status Reason Start Date Expiration Date Visits Requ ested Visits Authorized [id number] Closed 08/03/2021 08/03/2022 1 1 EN CUTTER AND TRIMMER Encounter Details Date Type Department Care Team Description 08/03/[address] [facility] Eliana Whyte Obstruction Gastric AND FAUSTINO Kwon M.D. Outlet (HCC) [address] (Primary Dx) [place] [address] [phone] Social History Tobacco Use Types Packs/Day Years [...] or relatives? How often do you attend orthodox or Never 2021 nondenominational services? Do you belong to any clubs or Yes 08/17/2021 organizations such as orthodox groups, unions, fraternal or athletic groups, [...] place to sleep or slept in a care home (including now)? Sex Assigned at Date [...] ry documented in this encounter Care Teams Employee Training Specialist Relationship Specialty Start Date End Date Augusto Robles M.B., B.Ch., B.A.O. PCP - General Family Medicine 02/28/20 [address] [place] [address] documented as of this encounter
--- OUTSIDE RECORDS SUMMARY | 2022-01-12 09:26 | XMS_ITS | Encounter Summary ---
:1985 Author Organization [facility] Address [address] [place] [address] Care Team Providers Name Role Phone Augusto Robles, B.Ch., B.A.O. Primary Care Provider [phone]- [phone] Encounter Details Date Type Department Care Team Description 07/13/2021 Orders Only RST PCP HLTH MNT Augusto Robles M.B., B.C h., Screening Lipid B.A.O. [address] [place], [place] [phone] (Wo rk) Social History [...] or relatives? How often do you attend confucianism or Never 2021 druze services? Do you belong to any clubs or Yes 08/17/2021 organizations such as confucianism groups, unions, fraternal or athletic groups, or [...] Lipid documented in this encounter Care Teams Dental Laboratory Technician Apprentice Relationship Specialty Start Date End Date Augusto Robles M.B., B.Ch., B.A.O. PCP - General Family Medicine 02/28/20 [address] [place] [address] documented as of this encounter
--- OUTSIDE RECORDS SUMMARY | 2022-01-12 09:26 | XMS_ITS | Encounter Summary ---
:1985 Author Organization [facility] Address [address] [place] [address] Care Team Providers Name Role Phone Augusto Robles, B.Ch., B.A.O. Primary Care Provider [phone]- [phone] Encounter Details Date Type Department Care Team Description 10/13/2020 Orders Only RST PCP HLTH ARNULFOT Augusto Robles, Screening Lipid; Denise.Tommie, B.Ch., B.A .O. Monitoring For Therapeutic Drug Therapy [address] [place] [address] (Wo rk) Social History Tobacco Use Types [...] do you attend islam or Never 2021 voodoo services? Do you belong to any clubs [...] place to sleep or slept in a long-term (including now)? Sex Assigned at Date Recorded Female 08/17/2021 7:54 AM CDT documented as of this encounter Plan of Treatment Not on filedocumented as of this encounter Visit Diagnoses Diagnosis Screening Lipid Monitoring For Therapeutic Drug Therapy documented in this encounter Care Teams Dog Trainer Relationship Specialty Start Date End Date Augusto Robles M.B., B.Ch., B.A.O. PCP - General Family Medicine 02/28/20 [address] [place] [address] documented as of this encounter
--- OUTSIDE RECORDS SUMMARY | 2022-01-12 09:26 | XMS_ITS | Encounter Summary ---
:1985 Author Organization [facility] Address [address] [place] [address] Care Team Providers Name Role Phone Augusto Robles, B.Brown., B.A.O. Primary Care Provider [phone]- [phone] Encounter Details Date Type Department Care Team Description 09/27/2020 Admin Visit Department of Family Medicine, [facility] in [place], [place] [address] [place] [address] Social History Tobacco Use Types Packs/Day [...] or relatives? How often do you attend taoism or Never 2021 cheondoism services? Do you belong to any clubs or Yes 08/17/2021 organizations such as taoism groups, unions, fraternal or athletic groups, or [...] place to sleep or slept in a snf (including now)? Sex Assigned at Date Recorded Female 08/17/2021 7:54 AM CDT documented as of this encounter Plan of Treatment Not on filedocumented as of this encounter Visit Diagnoses Not on filedocumented in this encounter Additional Health Concerns Infection Onset Date Last Indicated Resolved Time COVID19 Pending 09/26/2020 09/27/2020 09/27/2020 2:51 PM CDT documented as of this encounter Care Teams Erp Manager Relationship Specialty Start Date End Date Augusto Robles M.B., B.Ch., B.A.O. PCP - General Family Medicine 02/28/20 [address] [place] [address] documented as of this encounter
--- OUTSIDE RECORDS SUMMARY | 2022-01-12 09:26 | XMS_ITS | Encounter Summary ---
:1985 Author Organization [facility] Address [address] [place] [address] Care Team Providers Name Role Phone Augusto Robles, B.Brown., B.A.O. Primary Care Provider [phone] Reason for Visit Reason Comments COVID Inquiry Encounter Details Date Type Department Care Team Description 09/24/2020 Clinical Communication Central Appointment [facility] em Office in [address] [address] Social History Tobacco Use Types Packs/Day Years [...] or relatives? How often do you attend mosque or Never 2021 congregation services? Do you belong to any clubs or Yes 08/17/2021 organizations such as mosque groups, unions, fraternal or athletic groups, or [...] LABORATORY CONFIRMED case ofCOVID-19?: Yes exposure noted. [place] patient, instruct to quarantine, testing indicated (End Screening) Testing Recommendation Endpoint Is testing recommended? : Recommended to test Plan: Endpoint recommendation: Testing indicated, advised to be swabbed for COVID-19 Only , sent to [facility] located at [address] [facility]. You must schedule an appointment for testing at this location. Please call [phone] during the hours of 7 am to [...] sending patient for testing in [facility], route encounter to the correct testing pool. documented in this encounter Plan of Treatment Not on filedocumented as of this encounter Visit Diagnoses Not on filedocumented in this encounter Care Teams Major Assembly Lineman Relationship Specialty Start Date End Date Augusto Robles M.B., B.Ch., B.A.O. PCP - General Family Medicine 02/28/20 [address] [place] [address] documented as of this encounter
--- OUTSIDE RECORDS SUMMARY | 2022-01-12 09:26 | XMS_ITS | Encounter Summary ---
:1985 Author Organization [facility] Address [address] [place] [address] Care Team Providers Name Role Phone Augusto Robles, B., B.A.O. Primary Care Provider [phone]- [phone] Reason for Referral Outpatient (Routine) - Closed Specialty Diagnoses / Procedures Referred By Contact Refer red To Contact Diagnoses Obstruction Gastric Outlet (HCC) Abnormal Computed Tomography Abdomen Alcira Lanier M.D. [facility] Procedures EGD (EsophagealGastroDuodenoscopy) [address] [place] [address] Referral ID Status Reason Start Date Expiration Date Visits Requ ested Visits Authorized [id number] Closed 08/18/2021 08/18/2022 1 1 Reason for Visit Reason Comments obstruction gastric outlet comp Outpatient (Routine) - Closed Specialty Diagnoses / Referred By Contact Referred To Contact Procedures Gastroenterology and Diagnoses Obstruction Gastric Outlet (HCC) Eliana Whyte [facility] Hepatli Kwon M.D. [address] [place] [address] Referral ID Status Reason Start Date Expiration Date Visits Requ ested Visits Authorized [id number] Closed 08/03/2021 08/03/2022 1 1 Encounter Details Date Type Department Care Team Description 08/18/2021 Comprehensive Visit Division of Griselda Whyte M.D. [address] [place] [address] Abnormal Computed Tomography Abdomen (Pr imary Dx); Gastroenterology in Alcira Lanier M.D. [address] [place] [phone] Obstruction Gastric Outlet (HCC) [place], [place] [address] [place] [address] Social History Tobacco Use Types Packs/Day Years [...] you attend oriental orthodox or Never 2021 roman catholic services? Do you belong to any clubs [...] place to sleep or slept in a chcf (including now)? Education Answer Date Recorded What is the highest level of school Associate degree: academ [employer] program 08/17/2021 you have completed or the [...] Alcira Lanier M.D. CT CT Job ID: [id number] documented in this encounter Plan of Treatment Not on filedocumented as of this encounter Visit Diagnoses Diagnosis Abnormal Computed Tomography Abdomen - P rimary Obstruction Gastric Outlet (HCC) documented in this encounter Care Teams Estate Agent Relationship Specialty Start Date End Date Augusto Robles M.B., B.Ch., B.A.O. PCP - General Family Medicine 02/28/20 [address] [place] [address] documented as of this encounter
--- OUTSIDE RECORDS SUMMARY | 2022-01-12 09:26 | XMS_ITS | Encounter Summary ---
:1985 Author Organization [facility] Address [address] [place] [address] Care Team Providers Name Role Phone Augusto Robles, BJudy, B.A.O. Primary Care Provider [phone] Reason for Referral Outpatient (Routine) - Authorized Specialty Diagnoses / Procedures Referred By Contact Refer red To Contact Family Medicine Augusto Robles M.B., [facility] Moni, B.A.O. [address] [place] [address] Referral ID Status Reason Start Date Expiration Date Visits V isits Requested Authorized [id number] Authorized 10/20/2021 10/20/2022 1 1 Encounter Details Date Type Department Care Team Description 10/20/2021 Orders Only RST PCP TH Geovanna Salguero M.D. Monitoring For [address] [place] [address] [place]rapeutic [place] [address] (Wo rk) Social History Tobacco Use Types [...] do you attend orthodox or Never 2021 quaker services? Do you belong to any clubs [...] the highest level of school Associate degree: [employer] program 08/17/2021 you have completed or the highest degree you have received? Sex Assigned at Date Recorded Female 08/17/2021 7:54 AM CDT documented as of this encounter Plan of Treatment Scheduled Orders Name Type Priority Associated Diagnoses Order S [facility] Basic Metabolic Panel Lab Routine Monitoring For Ther apeutic Expected: 11/03/2021, Drug Therapy Expires: 2021 Scheduled Referrals Name Type Priority Associated Diagnoses Order S [facility] Family Medicine Outpatient Referral Routine Expec yovani: office visit 11/03/2021, (clinic) Expires: 04/18/2022 documented as of this encounter Visit Diagnoses Diagnosis Monitoring For Therapeutic Drug Therapy documented in this encounter Care Teams Bone Crusher Relationship Specialty Start Date End Date Augusto Robles M.B., B.Ch., B.A.O. PCP - General Family Medicine 02/28/20 [address] [place] [address] documented as of this encounter
--- OUTSIDE RECORDS SUMMARY | 2022-01-12 09:26 | XMS_ITS | Encounter Summary ---
:[address] [facility] Address [address] [place] [address] Care Team Providers Name Role Phone Augusto Robles, B., B.A.O. Primary Care Provider [phone] Reason for Visit Outpatient (Routine) - Canceled Specialty Diagnoses / Procedures Referred By Contact Refer red To Contact Diagnoses Stomach [facility] [place] Fluoro Less Than 1 Hour [facility] [address] [place] [address] Referral ID Status Reason Start Date Expiration Date Visits V isits Requested Authorized [id number] Canceled 09/10/2021 09/10/2022 1 1 Encounter Details Date Type Department Care Team Description 09/10/2021 Hospital Encounter Department of Desi, [place] h Functional Radiology, [facility] in [facility] [place], [place] [address] [place] [address] [address] [place] [address] [phone] Social History Tobacco Use Types Packs/Day Years [...] or relatives? How often do you attend cheondoism or Never 2021 yarsanism services? Do you belong to any clubs or Yes 08/17/2021 organizations such as cheondoism groups, unions, fraternal or athletic groups, or [...] highest level of school Associate degree: academ [employer] program 08/17/2021 you have completed or the [...] Disorder documented in this encounter Care Teams Cargo Bracer Relationship Specialty Start Date End Date Augusto Robles M.B., B.Ch., B.A.O. PCP - General Family Medicine 02/28/20 [address] [place] [address] documented as of this encounter
--- OUTSIDE RECORDS SUMMARY | 2022-01-12 09:26 | XMS_ITS | Encounter Summary ---
:1985 Author Organization [facility] Address [address] [place] [address] Care Team Providers Name Role Phone Augusto Robles, B.ChPriscila, B.A.O. Primary Care Provider [phone]- [phone] Encounter Details Date Type Department Care Team Description 01/21/2021 Orders Only RST PCP HL MNT Augusto Robles Monitorin g For Therapeutic Tra, Moni, B.A .O. Drug Therapy [address] [place] [address] (Wo rk) Social History Tobacco Use Types [...] or relatives? How often do you attend religious or Never 2021 mandaeism services? Do you belong to any clubs or Yes 08/17/2021 organizations such as religious groups, unions, fraternal or athletic groups, or [...] or slept in a correction (including now)? Sex Assigned at Date Recorded Female 08/17/2021 7:54 AM CDT documented as of this encounter Plan of Treatment Not on filedocumented as of this encounter Visit Diagnoses Diagnosis Monitoring For Therapeutic Drug Therapy documented in this encounter Care Teams Wooden Shade Hardware Installer Relationship Specialty Start Date End Date Augusto Robles M.B., B.Ch., B.A.O. PCP - General Family Medicine 02/28/20 [address] [place] [address] documented as of this encounter
--- OUTSIDE RECORDS SUMMARY | 2022-01-12 09:26 | XMS_ITS | Encounter Summary ---
:1985 Author Organization [facility] Address [address] [place] [address] Care Team Providers Name Role Phone Augusto Robles, B., B.A.O. Primary Care Provider [phone]- [phone] Reason for Referral Outpatient (Routine) - Closed Specialty Diagnoses / Procedures Referred By Contact Refer red To Contact Diagnoses Obstruction Gastric Outlet (HCC) Abnormal Computed Tomography Abdomen Alcira Lanier M.D. [facility] Procedures EGD (EsophagealGastroDuodenoscopy) [address] [place] [address] Referral ID Status Reason Start Date Expiration Date Visits Requ ested Visits Authorized [id number] Closed 08/18/2021 08/18/2022 1 1 Reason for Visit Outpatient (Routine) - Closed Specialty Diagnoses / Procedures Referred By Contact Refer red To Contact Diagnoses Obstruction Gastric Outlet (HCC) Abnormal Computed Tomography Abdomen Alcira Lanier M.D. [facility] Procedures EGD (EsophagealGastroDuodenoscopy) [address] [place] [address] Referral ID Status Reason Start Date Expiration Date Visits Requ ested Visits Authorized [id number] Closed 08/18/2021 08/18/2022 1 1 Encounter Details Date Type Department Care Team Description 09/10/2021 Hospital Division of Alcira Lanier M.D. [address] [place] [address] Obstruction Gastric Outlet (HCC); Encounter Gastroenterology in [place], PRODUCT MARKETING SPECIALIST, TIMBER FRAMER HELPER, DNAP [address] [place] [address] Abnormal Computed Tomography Abdomen [place], [place] [address] [place] [address] Social History Tobacco Use [...] do you attend gnosticist or Never 2021 sabianism services? Do you belong to any clubs [...] highest level of school Associate degree: academ [employer] program 08/17/2021 you have completed or the [...] DTL Its performance characteristics were determined by [place] 11:17 AM [facility] in a manner consistent with CLIA [...] [facility] - 200 [place], [place] [address] [facility] [place] [address] [facility] [address] Upper GI Endoscopy (09/10/2021 12:07 PM CDT) Specimen (Source) Anatomical Collection Method Collection Time Re ceived Time Location / / Volume Laterality 09/10/2021 12:07 PM CDT Impressions [facility] - 09/10/2021 12:54 PM CDT Post-op Diagnoses: ? - Normal esophagus. ? - Normal stomach. Biopsied. ? - Normal examined duodenum. ? - Esophagogastric landmarks ident ified. Narrative [facility] - 09/10/2021 12:54 PM CDT Gonda 2 [...] City/State/ZIP Code Phon e Number [employer] [place] [employer] [place] documented in this encounter Visit [...] Post-Op documented in this encounter Care Teams Curriculum And Instruction Specialist Relationship Specialty Start Date End Date Augusto Robles M.B., B.Ch., B.A.O. PCP - General Family Medicine 02/28/[address] [place] [address] documented as of this encounter
--- OUTSIDE RECORDS SUMMARY | 2022-01-12 09:26 | XMS_ITS | Encounter Summary ---
:1985 Author Organization [facility] Address [address] [place] [address] Care Team Providers Name Role Phone Augusto Robles, B.Brown., B.A.O. Primary Care Provider [phone] Encounter Details Date Type Department Care Team Description 09/09/2021 Lab Department of [facility] Sav Lanier M.D. Preprocedural Lab Exam [facility] [address] [facility] [address] [place] [address] [place] [address] [facility] [phone] Social History Tobacco Use Types Packs/Day Years [...] or relatives? How often do you attend buddhism or Never 2021 taoist services? Do you belong to any clubs or Yes 08/17/2021 organizations such as buddhism groups, unions, fraternal or athletic groups, or [...] place to sleep or slept in a retirement (including now)? Education Answer Date Recorded What is the highest level of school Associate degree: [employer] program 08/17/2021 you have completed or the [...] RNA, V Asymptomatic (09/09/2021 8:40 AM CDT) [facility] gist Method Time Signature SARS-CoV-2 Swab, [...] pe rformed using the Aptima SARS-CoV-2 assay ([employer] on the [employer] OTRs tem under emergency use authorization (EUA) by the U.S. Food and Drug Administ ration. Fact sheets for this EUA assay can be fo und at the following links: For Healthcare Providers: https://www.fd a.gov/media/272226/download For Patients: https://www.fda.gov/media/ 494149/download Specimen Anatomical Collection Method Collection Time Receive d Time (Source) Location / / Volume Laterality Varies 09/09/2021 8:40 AM 7:14 (Nasopharynx) CDT PM CDT Alcira Lanier M.D. LAB MICROBIOLOGY - GENERAL O CALLUM Performing Organization Address City/State/ZIP Code Phon e Number [facility]- [address] [place] [address] [facility] [address] System [address] documented in this encounter Visit Diagnoses Diagnosis Preprocedural Lab Exam documented in this encounter Additional Health Concerns Infection Onset Date Last Indicated Resolved Time COVID19 Pending 09/08/2021 09/09/2021 09/09/2021 11:30 PM CDT documented as of this encounter Care Teams Pantograph I Engraver Relationship Specialty Start Date End Date Augusto Robles M.B., B.Ch., B.A.O. PCP - General Family Medicine 02/28/20 [address] [place] [address] documented as of this encounter
--- OUTSIDE RECORDS SUMMARY | 2022-01-12 09:26 | XMS_ITS | Encounter Summary ---
:1985 Author Organization [facility] Address [address] [place] [address] Care Team Providers Name Role Phone Augusto Robles, B.Brown., B.A.O. Primary Care Provider [phone] Encounter Details Date Type Department Care Team Description 08/23/2021 Episode Changes Division of Gastroenterology in [place], [place] [address] [place] [address] Social History Tobacco Use Types Packs/Day [...] or relatives? How often do you attend congregation or Never 2021 anabaptism services? Do you belong to any clubs or Yes 08/17/2021 organizations such as congregation groups, unions, fraternal or athletic groups, or [...] highest level of school Associate degree: academ [employer] program 08/17/2021 you have completed or the highest degree you have received? Sex Assigned at Date Recorded Female 08/17/2021 7:54 AM CDT documented as of this encounter Plan of Treatment Not on filedocumented as of this encounter Visit Diagnoses Not on filedocumented in this encounter Care Teams Plate Grinder Relationship Specialty Start Date End Date Augusto Robles M.B., B.Ch., B.A.O. PCP - General Family Medicine 02/28/20 [address] [place] [address] documented as of this encounter
--- OUTSIDE RECORDS SUMMARY | 2022-01-12 09:26 | XMS_ITS | Clinical Summary ---
:1985 Author Organization [facility] Address [address] [place] [address] Care Team Providers Name Role Phone Augusto Robles, B.Brown., B.A.O. Primary Care Provider [phone] Source Comments Patient records contain information from all sites at [facility]. For routine questions regarding patient records, call [phone] during business hours, M-F 8:00 AM - 5:00 PM Central Time. Record requests for emergency care only can be directed to [phone] at any time.[facility] Allergies No known active allergies Medications [...] or relatives? How often do you attend gnosticism or Never 2021 restoration services? Do you belong to any clubs or Yes 08/17/2021 organizations such as gnosticism groups, unions, fraternal or athletic groups, or [...] highest level of school Associate degree: academ [employer] program 08/17/2021 you have completed or the [...] Phone Address T ype Group Dates [facility] [id number] 2017-Prese [address] Medicaid H[place] [address] [place] [address] [facility] [place] [address] Care Teams Novelty Balloon Assembler And Packer Relationship Specialty Start Date End Date Augusto Robles M.B., B.Ch., B.A.O. PCP - General Family Medicine 02/28/20 [address] [place] [address]
--- OUTSIDE RECORDS SUMMARY | 2022-01-12 09:26 | XMS_ITS | Encounter Summary ---
:1985 Author Organization [facility] Address [address] [place] [address] Care Team Providers Name Role Phone Augusto Robles, B.Ch., B.A.O. Primary Care Provider [phone] Reason for Visit Reason Onset Date Comments Testing For Upper Respiratory Virus Symptoms 09/26/2020 Encounter Details Date Type Department Care Team Description 09/26/2020 External Outreach Department of [facility] Nathaly Hein ntact With And MedicineRyne, (Suspected) Exp osure Professional and P.A.-C. To COVID-19 ([facility] Center in [address] [place] [address] lvd Dx) [place], [place] [address] [address] [place], [place] [phone] [address] (Work) [phone] Social History Tobacco Use Types Packs/Day Years [...] or relatives? How often do you attend judaism or Never 2021 presybeterian services? Do you belong to any clubs or Yes 08/17/2021 organizations such as judaism groups, unions, fraternal or athletic groups, or [...] or slept in a retirement (including now)? Sex Assigned at Date Recorded [...] 2, PCR, V (09/27/2020 10:50 AM CDT) [facility] Method Time Signature SARS-Coronavi Undetected Undetected 09/27/2020 ECLR dannie-2, PCR 3:37 PM CDT Comment: SARS-CoV-2 RNA absent. ?? ----ADDITIONAL INFORMATION---- This RT-PCR test using the Xpert Xpress SARS-CoV-2/Flu/RSV assay ([employer] performed on the [employer] rt DX systems has received Emergency Use Authorization (EU A) by the U.S. Food and Drug Administration. Performanc e characteristics were verified by [facility] inic in a manner consistent with CLIA requirements . Fact sheets for this Emergency Use Autho rization (EUA) assay can be found at the following link s: For Healthcare Providers: https://www.fda.gov/media/404667/downloa d For Patients: https://www.fda.gov/media/816915/downloa d Specimen Source Nasopharyngeal Swab 09/27/2020 2:5 1 PM CDT ECLR Specimen Anatomical Collection Method Collection Time Receive d Time (Source) Location / / Volume Laterality Varies 09/27/2020 10:50 09/27/2020 2:50 AM CDT PM CDT Ryne Hein P.A.-C. LAB MICROBIOLOGY - GENERAL O CALLUM Performing Organization Address City/State/ZIP Code Phon e Number [facility]- [address] [place] [phone] [facility] [place] [address] System [address] documented in this encounter Visit Diagnoses Diagnosis Contact With And (Suspected) Exposure To COVID-19 - Primary documented in this encounter Additional Health Concerns Infection Onset Date Last Indicated Resolved Time COVID19 Pending 09/26/2020 09/27/2020 09/27/2020 2:51 PM CDT documented as of this encounter Care Teams Wind Farm Engineer Relationship Specialty Start Date End Date Augusto Roblse M.B., B.Ch., B.A.O. PCP - General Family Medicine 02/28/20 [address] [place] [address] documented as of this encounter
== END 2022-01-12 09:24 | disposition home or self-care (01) ==
PROVIDERS: PCP Family Medicine; Visit Provider Family Medicine
DX: Z30.433 Encounter for removal and reinsertion of intrauterine contraceptive device (principal); Z12.4 Encounter for screening for malignant neoplasm of cervix
CPT/HCPCS: 81025; 87624; 88175

== ENCOUNTER 2022-05-17 13:35 | Outpatient (CLI) | payer OTHER, SELFPAY ==
--- OUTSIDE RECORDS SUMMARY | 2022-05-17 13:38 | XMS_ITS | Encounter Summary ---
:1985 Author Organization [facility] Address [address] [place] [address] Care Team Providers Name Role Phone Augusto Robles, B.Ch., B.A.O. Primary Care Provider [phone]- [phone] Encounter Details Date Type Department Care Team Description 01/21/2022 Orders Only RST PCP HLTH MNT Augusto Robles M.B., B.C h., Screening Lipid B.A.O. [address] [place], [place] [phone] (Wo rk) Social History [...] more drinks on one Never 08/17/2021 occasion? Social Isolation Answer Date Recorded In a typical week, how many times do you More than three luis angel es a week 08/17/2021 talk on the phone with family, friends, or neighbors? How often do you get together with friends More than three t imes a week 08/17/2021 or relatives? How often do you attend orthodoxy or Never 2021 mormon services? Do you belong to any clubs or Yes 08/17/2021 organizations such as orthodoxy groups, unions, fraternal or athletic groups, or [...] slept in a group home (including now)? Education Answer Date Recorded What is the highest level of school Associate degree: academ [employer] program 08/17/2021 you have completed or the highest degree you have received? Sex Assigned at Date Recorded Female 08/17/2021 7:54 AM CDT documented as of this encounter Plan of Treatment Scheduled Orders Name Type Priority Associated Diagnoses Order S chedule Lipid Panel Lab Routine Screening Lipid Expected: , Expires: 07/20/2022 documented as of this encounter Visit Diagnoses Diagnosis Screening Lipid documented in this encounter Care Teams Refrigerator Car Icer Relationship Specialty Start Date End Date Augusto Robles M.B., B.Ch., B.A.O. PCP - General Family Medicine 02/28/20 [address] [place] [address] documented as of this encounter
--- OUTSIDE RECORDS SUMMARY | 2022-05-17 13:38 | XMS_ITS | Encounter Summary ---
:1985 Author Organization [facility] Address [address] [place] [address] Care Team Providers Name Role Phone Augusto Robles, B., B.A.O. Primary Care Provider [phone]- [phone] Encounter Details Date Type Department Care Team Description 09/27/2020 Admin Visit Department of Family Medicine, [facility] [place] in [place], [place] [address] [phone] Social History Tobacco Use Types Packs/Day [...] or relatives? How often do you attend presybeterian or Never 2021 zoroastrian services? Do you belong to any clubs or Yes 08/17/2021 organizations such as presybeterian groups, unions, fraternal or athletic groups, or [...] documented as of this encounter Care Teams Hat Renovator Relationship Specialty Start Date End Date Augusto Robles M.B., B.Ch., B.A.O. PCP - General Family Medicine 02/28/20 [address] [place] [address] documented as of this encounter
--- OUTSIDE RECORDS SUMMARY | 2022-05-17 13:38 | XMS_ITS | Encounter Summary ---
:1985 Author Organization [facility] Address [address] [place] [address] Care Team Providers Name Role Phone Augusto Robles, B.Ch., B.A.O. Primary Care Provider [phone]- [phone] Encounter Details Date Type Department Care Team Description 07/13/2021 Orders Only RST PCP HLTH MNT Augusto Robles M.B., B.C h., Screening Lipid B.A.O. [address] [place], [place] [phone] (Wo rk) Social History [...] or relatives? How often do you attend latter-day or Never 2021 congregation services? Do you belong to any clubs or Yes 08/17/2021 organizations such as latter-day groups, unions, fraternal or athletic groups, or [...] place to sleep or slept in a jail (including now)? Sex Assigned at Date Recorded Female 08/17/2021 7:54 AM CDT documented as of this encounter Plan of Treatment Not on filedocumented as of this encounter Visit Diagnoses Diagnosis Screening Lipid documented in this encounter Care Teams Site Damage Prevention Technician Relationship Specialty Start Date End Date Augusto Robles M.B., B.Ch., B.A.O. PCP - General Family Medicine 02/28/20 [address] [place] [address] documented as of this encounter
--- OUTSIDE RECORDS SUMMARY | 2022-05-17 13:38 | XMS_ITS | Encounter Summary ---
:1985 Author Organization [facility] Address [address] [place] [address] Care Team Providers Name Role Phone Augusto Robles, B., B.A.O. Primary Care Provider +1- [phone] Reason for Referral Outpatient (Routine) - Closed Specialty Diagnoses / Procedures Referred By Contact Refer red To Contact Diagnoses Obstruction Gastric Outlet (HCC) Abnormal Computed Tomography Abdomen Alcira Lanier M.D. [facility] Procedures EGD (EsophagealGastroDuodenoscopy) [address] [place] [address] Referral ID Status Reason Start Date Expiration Date Visits Requ ested Visits Authorized [id number] Closed 08/18/2021 08/18/2022 1 1 Reason for Visit Reason Comments obstruction gastric outlet comp Outpatient (Routine) - Closed Specialty Diagnoses / Referred By Contact Referred To Contact Procedures Gastroenterology and Diagnoses Obstruction Gastric Outlet (HCC) Eliana Whyte [facility] Hepatli Kwon M.D. [address] [place] [address] Referral ID Status Reason Start Date Expiration Date Visits Requ ested Visits Authorized [id number] Closed 08/03/2021 08/03/2022 1 1 Encounter Details Date Type Department Care Team Description 08/18/2021 Comprehensive Visit Division of Griselda Whyte M.D. [address] [place] [address] Abnormal Computed Tomography Abdomen (Pr imary Dx); Gastroenterology in Alcira Lanier M.D. [address] [place] [phone] Obstruction Gastric Outlet (HCC) [place], [place] [address] [place] [phone] Social History Tobacco Use Types Packs/Day Years [...] or relatives? How often do you attend methodist or Never 2021 sabianism services? Do you belong to any clubs or Yes 08/17/2021 organizations such as methodist groups, unions, fraternal or athletic groups, or [...] place to sleep or slept in a nursing home (including now)? Education Answer Date Recorded What is the highest level of school Associate degree: academ [employer] program 08/17/2021 you have completed or the [...] Alcira Lanier M.D. CT CT Job ID: [id number] documented in this encounter Plan of Treatment Not on filedocumented as of this encounter Visit Diagnoses Diagnosis Abnormal Computed Tomography Abdomen - P rimary Obstruction Gastric Outlet (HCC) documented in this encounter Care Teams Photo Mask Processor Relationship Specialty Start Date End Date Augusto Robles M.B., B.Ch., B.A.O. PCP - General Family Medicine 02/28/[address] [place] [address] documented as of this encounter
--- OUTSIDE RECORDS SUMMARY | 2022-05-17 13:38 | XMS_ITS | Encounter Summary ---
:1985 Author Organization [facility] Address [address] [place] [address] Care Team Providers Name Role Phone Augusto Robles, B., B.A.O. Primary Care Provider +1- [phone] Encounter Details Date Type Department Care Team Description 08/23/2021 Episode Changes Division of Gastroenterology in [place], [place] [address] [place] [address] Social History Tobacco Use Types Packs/Day [...] do you attend congregation or Never 2021 zoroastrianism services? Do you [...] highest level of school Associate degree: academ program 08/17/2021 you have completed or the highest degree you have received? Sex Assigned at Date Recorded Female 08/17/2021 7:54 AM CDT documented as of this encounter Plan of Treatment Not on filedocumented as of this encounter Visit Diagnoses Not on filedocumented in this encounter Care Teams Band Builder Relationship Specialty Start Date End Date Augusto Robles M.B., B.Ch., B.A.O. PCP - General Family Medicine 02/28/20 [address] [place] [address] documented as of this encounter
--- OUTSIDE RECORDS SUMMARY | 2022-05-17 13:38 | XMS_ITS | Encounter Summary ---
:1985 Author Organization [facility] Address [address] [place] [address] Care Team Providers Name Role Phone Augusto Robles, BJudy, B.A.O. Primary Care Provider +1 [phone] Reason for Visit Outpatient (Routine) - Canceled Specialty Diagnoses / Procedures Referred By Contact Refer red To Contact Diagnoses Stomach Functional [facility] [place] Fluoro Less Than 1 Hour [facility]. [address] [place] [address] Referral ID Status Reason Start Date Expiration Date Visits V isits Requested Authorized [id number] Canceled 09/10/2021 09/10/2022 1 1 Encounter Details Date Type Department Care Team Description 09/10/2021 Hospital Encounter Department of Alyse Weeks [facility], [facility] [place], [place] [address] [place] [address] [place] [address] [phone] Social History Tobacco Use Types Packs/Day Years [...] or relatives? How often do you attend druze or Never 2021 yarsanism services? Do you belong to any clubs or Yes 08/17/2021 organizations such as druze groups, unions, [email or web address] or athletic groups, or school groups? How [...] highest level of school Associate degree: academ [email or web address] program 08/17/2021 you have completed or the [...] Disorder documented in this encounter Care Teams Quiller Tender Relationship Specialty Start Date End Date Augusto Robles M.B., B.Ch., B.A.O. PCP - General Family Medicine 02/28/20 [address] [place] [address] documented as of this encounter
--- OUTSIDE RECORDS SUMMARY | 2022-05-17 13:38 | XMS_ITS | Encounter Summary ---
:1985 Author Organization [facility] Address [address] [place] [address] Care Team Providers Name Role Phone Augusto Robles, B.Ch., B.A.O. Primary Care Provider +1- [phone] Encounter Details Date Type Department Care Team Description 10/13/2020 Orders Only RST PCP HL ARNULFOT Augusto Robles, Screening Lipid; Tra, B.Ch., B.A .O. Monitoring For Therapeutic Drug Therapy [address] [place] [address] (Wo rk) Social History Tobacco Use Types [...] or relatives? How often do you attend shinto or Never 2021 mosque services? Do you belong to any clubs or Yes 08/17/2021 organizations such as shinto groups, unions, fraternal or athletic groups, or [...] place to sleep or slept in a residential (including now)? Sex Assigned at Date Recorded Female 08/17/2021 7:54 AM CDT documented as of this encounter Plan of Treatment Not on filedocumented as of this encounter Visit Diagnoses Diagnosis Screening Lipid Monitoring For Therapeutic Drug Therapy documented in this encounter Care Teams Cash Posting Representative Relationship Specialty Start Date End Date Augusto Robles M.B., B.Ch., B.A.O. PCP - General Family Medicine 02/28/20 [address] [place] [address] documented as of this encounter
--- OUTSIDE RECORDS SUMMARY | 2022-05-17 13:38 | XMS_ITS | Encounter Summary ---
:1985 Author Organization [facility] Address [address] [place] [address] Care Team Providers Name Role Phone Augusto Robles, B.Brown., B.A.O. Primary Care Provider +1- [phone] Encounter Details Date Type Department Care Team Description 10/20/2021 Orders Only RST PCP [facility] MNT Geovanna Hamilton M.D. Monitoring For 200 [facility] [[email or web address] [place] [address] (Wo rk) Social History Tobacco Use Types [...] do you attend spiritism or Never 2021 quaker services? Do you [...] highest level of school Associate degree: academ [employer] program 08/17/2021 you have completed or the highest degree you have received? Sex Assigned at Date Recorded Female 08/17/2021 7:54 AM CDT documented as of this encounter Plan of Treatment Not on filedocumented as of this encounter Visit Diagnoses Diagnosis Monitoring For Therapeutic Drug Therapy documented in this encounter Care Teams Cinder Block Maker Relationship Specialty Start Date End Date Augusto Robles M.B., B.Ch., B.A.O. PCP - General Family Medicine 02/28/20 [address] [place] [address] documented as of this encounter
--- OUTSIDE RECORDS SUMMARY | 2022-05-17 13:38 | XMS_ITS | Encounter Summary ---
:1985 Author Organization [facility] Address [address] [place] [address] Care Team Providers Name Role Phone Augusto Robles, B., B.A.O. Primary Care Provider +1 [phone] Reason for Referral Outpatient (Routine) - Closed Specialty Diagnoses / Referred By Contact Referred To Contact Procedures Gastroenterology and Diagnoses Obstruction Gastric Outlet (HCC) Eliana Whyte [facility] Hepatology Diomedes Kwon [address] [place] [address] Referral ID Status Reason Start Date Expiration Date Visits Requ ested Visits Authorized [id number] Closed 08/03/2021 08/03/2022 1 1 UCT APPLICATIONS ENGINEER Encounter Details Date Type Department Care Team Description 08/03/2021 [facility] Eliana Whyte Obstruction Gastric AND FAUSTINO Kwon M.D. Outlet (HCC) [address] [facility] 1999 [facility] (Primary Dx) [place] [address] [phone] Social History Tobacco Use Types Packs/Day Years [...] or relatives? How often do you attend advent or Never 2021 latter day services? Do you belong to any clubs or Yes 08/17/2021 organizations such as advent groups, unions, fraJamgle or athletic groups, or school groups? How [...] slept in a senior living (including now)? Sex Assigned at Date Recorded [...] ry documented in this encounter Care Teams Dining Service Supervisor Relationship Specialty Start Date End Date Augusto Robles M.B., B.Ch., B.A.O. PCP - General Family Medicine 02/28/20 [address] [place] [address] documented as of this encounter
--- OUTSIDE RECORDS SUMMARY | 2022-05-17 13:38 | XMS_ITS | Encounter Summary ---
:1985 Author Organization [facility] Address [address] [place] [address] Care Team Providers Name Role Phone Augusto Robles, B., B.A.O. Primary Care Provider +1- [phone] Encounter Details Date Type Department Care Team [...] or relatives? How often do you attend restoration or Never 2021 hinduism services? Do you belong to any clubs or Yes 08/17/2021 organizations such as restoration groups, unions, fraternal or athletic groups, or [...] highest level of school Associate degree: academ [employer] program 08/17/2021 you have completed or the [...] on filedocumented in this encounter Care Teams Wireless Sales Manager Relationship Specialty Start Date End Date Augusto Robles M.B., B.Ch., B.A.O. PCP - General Family Medicine 02/28/[address] [place] [address] documented as of this encounter
--- OUTSIDE RECORDS SUMMARY | 2022-05-17 13:38 | XMS_ITS | Encounter Summary ---
:1985 Author Organization [facility] Address [address] [place] [address] Care Team Providers Name Role Phone Augusto Robles, B., B.A.O. Primary Care Provider +1- [phone] Encounter Details Date Type Department Care Team Description 09/09/2021 Lab Department of [facility] Sav Lanier M.D. Preprocedural Lab Exam [facility] [address] [facility] [address] [place] [address] [place] [address] [facility] [phone] Social History Tobacco Use Types Packs/Day Years [...] or relatives? How often do you attend hoahaoism or Never 2021 zoroastrianism services? Do you belong to any clubs or Yes 08/17/2021 organizations such as hoahaoism groups, unions, fraternal or athletic groups, or [...] or slept in a long-term (including now)? Education Answer Date Recorded What is the highest level of school Associate degree: academ [employer] program 08/17/2021 you have completed or the [...] RNA, V Asymptomatic (09/09/2021 8:40 AM CDT) [facility] Method Time Signature SARS-CoV-2 Swab, 09/09/2021 MKTO [...] pe rformed using the Aptima SARS-CoV-2 assay ([employer] on the View3s tem under emergency use authorization (EUA) by the U.S. Food and Drug Administ ration. Fact sheets for this EUA assay can be fo und at the following links: For Healthcare Providers: https://www.fd a.gov/media/598301/download For Patients: https://www.fda.gov/media/ 452346/download Specimen Anatomical Collection Method Collection Time Receive d Time (Source) Location / / Volume Laterality Varies 09/09/2021 8:40 AM 7:14 (Nasopharynx) CDT PM CDT Alcira Lanier M.D. LAB MICROBIOLOGY - GENERAL O RDERABLES Performing Organization Address City/State/ZIP Code Phon e Number [facility]- [address] [place] [phone] [place] [address] System in [place] [address] [place] [address] documented in this encounter Visit Diagnoses Diagnosis Preprocedural Lab Exam documented in this encounter Additional Health Concerns Infection Onset Date Last Indicated Resolved Time COVID19 Pending 09/08/2021 09/09/2021 09/09/2021 11:30 PM CDT documented as of this encounter Care Teams Dining Car Conductor Relationship Specialty Start Date End Date Augusto Robles M.B., B.Ch., B.A.O. PCP - General Family Medicine 02/28/20 [address] [place] [address] documented as of this encounter
--- OUTSIDE RECORDS SUMMARY | 2022-05-17 13:38 | XMS_ITS | Encounter Summary ---
:1985 Author Organization [facility] Address [address] [place] [address] Care Team Providers Name Role Phone Augusto Robles, B.Ch., B.A.O. Primary Care Provider +1- [phone] Encounter Details Date Type Department Care Team Description 04/13/2021 Orders Only RST PCP [facility] MNT Augusto Robles M.B., B.C h., B.A.O. [address] [place], [place] [phone] (Wo rk) Social History [...] do you attend yarsani or Never 2021 temple services? Do you belong to any clubs [...] place to sleep or slept in a long term (including now)? Sex Assigned at Date Recorded Female 08/17/2021 7:54 AM CDT documented as of this encounter Plan of Treatment Not on filedocumented as of this encounter Visit Diagnoses Not on filedocumented in this encounter Care Teams Security Flex Officer Relationship Specialty Start Date End Date Augusto Robles M.B., B.Ch., B.A.O. PCP - General Family Medicine 02/28/20 [address] [place] [address] documented as of this encounter
--- OUTSIDE RECORDS SUMMARY | 2022-05-17 13:38 | XMS_ITS | Encounter Summary ---
:1985 Author Organization [facility] Address [address] [place] [address] Care Team Providers Name Role Phone Augusto Robles, B., B.A.O. Primary Care Provider +1- [phone] Reason for Visit Reason Onset Date Comments Testing For Upper Respiratory Virus Symptoms 09/26/2020 Encounter Details Date Type Department Care Team Description 09/26/2020 External Outreach Department of [facility] Nathaly Hein ntact With And MedicineRyne, (Suspected) Exp osure Professional and P.A.-C. To [facility] ([facility] in [address] [place] [address] lvd Dx) [place], [place] [address] [address] [place], [place] [phone] [address] (Work) [phone] Social History Tobacco Use Types Packs/Day Years [...] do you attend congregation or Never 2021 yarsanism services? Do you [...] 2, PCR, V (09/27/2020 10:50 AM CDT) [facility] Method Time Signature SARS-Coronavi Undetected Undetected 09/27/2020 ECLR dannie-2, PCR 3:37 PM CDT Comment: SARS-CoV-2 RNA absent. ?? ----ADDITIONAL INFORMATION---- This RT-PCR test using the Xpert Xpress SARS-CoV-2/Flu/RSV assay ([employer] performed on the Modulus rt DX systems has received Emergency Use Authorization (EU A) by the U.S. Food and Drug Administration. Performanc e characteristics were verified by [place] [facility] inic in a manner consistent with CLIA requirements . Fact sheets for this Emergency Use Autho rization (EUA) assay can be found at the following link s: For Healthcare Providers: https://www.fda.gov/media/716026/downloa d For Patients: https://www.fda.gov/media/610798/downloa d Specimen Source Nasopharyngeal Swab 09/27/2020 2:5 1 PM CDT ECLR Specimen Anatomical Collection Method Collection Time Receive d Time (Source) Location / / Volume Laterality Varies 09/27/2020 10:50 09/27/2020 2:50 AM CDT PM CDT Ryne Hein P.A.-C. LAB MICROBIOLOGY - GENERAL O RDERABLES Performing Organization Address City/State/[facility] Code Phon e Number [facility]- [address] [place] [phone] [facility] [place] [address] System [address] documented in this encounter Visit Diagnoses Diagnosis Contact With And (Suspected) Exposure To COVID-19 - Primary documented in this encounter Additional Health Concerns Infection Onset Date Last Indicated Resolved Time COVID19 Pending 09/26/2020 09/27/2020 09/27/2020 2:51 PM CDT documented as of this encounter Care Teams Principal Programmer Relationship Specialty Start Date End Date Augusto Robles M.B., B.Ch., B.A.O. PCP - General Family Medicine 02/28/20 [address] [place] [address] documented as of this encounter
--- OUTSIDE RECORDS SUMMARY | 2022-05-17 13:38 | XMS_ITS | Encounter Summary ---
:1985 Author Organization [facility] Address [address] [place] [address] Care Team Providers Name Role Phone Augusto Robles, B., B.A.O. Primary Care Provider +1- [phone] Reason for Visit Reason Comments COVID Inquiry Encounter Details Date Type Department Care Team Description 09/24/2020 Clinical Communication Central Appointment [facility] in [address] [address] Social History Tobacco Use Types Packs/Day Years [...] or relatives? How often do you attend evangelical or Never 2021 adventist services? Do you belong to any clubs or Yes 08/17/2021 organizations such as evangelical groups, unions, fraternal or athletic groups, or [...] or slept in a custodial (including now)? Sex Assigned at Date Recorded [...] LABORATORY CONFIRMED case ofCOVID-19?: Yes exposure noted. [place] patient, instruct to quarantine, testing indicated (End Screening) Testing Recommendation Endpoint Is testing recommended? : Recommended to test Plan: Endpoint recommendation: Testing indicated, advised to be swabbed for COVID-19 Only , sent to [facility] [place] located at [address]. You must schedule an appointment for testing at this location. Please call [phone] during the hours of 7 am to [...] sending patient for testing in T or [facility], route encounter to the correct testing pool. documented in this encounter Plan of Treatment Not on filedocumented as of this encounter Visit Diagnoses Not on filedocumented in this encounter Care Teams Clipper Machine Relationship Specialty Start Date End Date Augusto Robles M.B., B.Brown., B.A.O. PCP - General Family Medicine 02/28/20 [address] [place] [address] documented as of this encounter
--- OUTSIDE RECORDS SUMMARY | 2022-05-17 13:38 | XMS_ITS | Encounter Summary ---
:1985 Author Organization [facility] Address [address] [place] [address] Care Team Providers Name Role Phone Augusto Robles, Moni, B.A.O. Primary Care Provider +1- [phone] Encounter Details Date Type Department Care Team Description 01/21/2021 Orders Only RST PCP [facility] ARNULFOT Augusto Robles Monitorin g For Therapeutic Tra, Moni, B.A .O. Drug Therapy [address] [place] [address] (Wo rk) Social History Tobacco Use Types [...] do you attend christianity or Never 2021 orthodoxy services? Do you belong to any clubs [...] place to sleep or slept in a halfway (including now)? Sex Assigned at Date Recorded Female 08/17/2021 7:54 AM CDT documented as of this encounter Plan of Treatment Not on filedocumented as of this encounter Visit Diagnoses Diagnosis Monitoring For Therapeutic Drug Therapy documented in this encounter Care Teams Grounds Keeper Relationship Specialty Start Date End Date Augusto Robles M.B., B.Ch., B.A.O. PCP - General Family Medicine 02/28/20 [address] [place] [address] documented as of this encounter
--- OUTSIDE RECORDS SUMMARY | 2022-05-17 13:38 | XMS_ITS | Encounter Summary ---
:1985 Author Organization [facility] Address [address] [place] [address] Care Team Providers Name Role Phone Augusto Robles, B., B.A.O. Primary Care Provider +1- [phone] Reason for Referral Outpatient (Routine) - Closed Specialty Diagnoses / Procedures Referred By Contact Refer red To Contact Diagnoses Obstruction Gastric Outlet (HCC) Abnormal Computed Tomography Abdomen Alcira Lanier M.D. [facility] Procedures EGD (EsophagealGastroDuodenoscopy) [address] [place] [address] Referral ID Status Reason Start Date Expiration Date Visits Requ ested Visits Authorized [id number] Closed 08/18/2021 08/18/2022 1 1 Reason for Visit Outpatient (Routine) - Closed Specialty Diagnoses / Procedures Referred By Contact Refer red To Contact Diagnoses Obstruction Gastric Outlet (HCC) Abnormal Computed Tomography Abdomen Alcira Lanier M.D. [facility] Procedures EGD (EsophagealGastroDuodenoscopy) [address] [place], [place] [address] Referral ID Status Reason Start Date Expiration Date Visits Requ ested Visits Authorized [id number] Closed 08/18/2021 08/18/2022 1 1 Encounter Details Date Type Department Care Team Description 09/10/2021 Hospital Division of Alcira Lanier M.D. [address] [place] [phone] Obstruction Gastric Outlet (HCC); Encounter Gastroenterology in Ethan Worley APRN, SHAHRIAR, DNAP [address] [place] [address] Abnormal Computed Tomography Abdomen [place], [place] [address] [place], [place] [address] Social History Tobacco Use Types Packs/Day [...] do you attend gnosticist or Never 2021 advent services? Do you belong to any clubs [...] place to sleep or slept in a intermediate (including now)? Education Answer Date Recorded What [...] DTL Its performance characteristics were determined by [place] 11:17 AM [facility] [place] in a manner consistent with CLIA requirements. [...] Organization Address City/State/ZIP Code Phon e Number [facility] - 200 [place], [place] [address] [facility] [place] [address] [facility] [address] Upper GI Endoscopy (09/10/2021 12:07 PM CDT) Specimen (Source) Anatomical Collection Method Collection Time Re ceived Time Location / / Volume Laterality 09/10/2021 12:07 PM CDT Impressions [facility] 09/10/2021 12:54 PM CDT Post-op Diagnoses: ? - Normal esophagus. ? - Normal stomach. Biopsied. ? - Normal examined duodenum. ? - Esophagogastric landmarks ident ified. Narrative [facility] - 09/10/2021 12:54 PM CDT Gonda 2 [...] City/State/ZIP Code Phon e Number [employer] NA documented in this encounter Visit [...] Post-Op documented in this encounter Care Teams Cooking Teacher Relationship Specialty Start Date End Date Augusto Robles M.B., B.Ch., B.A.O. PCP - General Family Medicine 02/28/[address] [place] [address] documented as of this encounter
--- OUTSIDE RECORDS SUMMARY | 2022-05-17 13:38 | XMS_ITS | Clinical Summary ---
:1985 Author Organization [facility] Address [address] [place] [address] Care Team Providers Name Role Phone Augusto Robles, B., B.A.O. Primary Care Provider [phone] Source Comments Patient records contain information from all sites at [facility]. For routine questions regarding patient records, call [phone] during business hours, M-F 8:00 AM - 5:00 PM Central Time. Record requests for emergency care only can be directed to [phone] at any time.[facility] Allergies No known active allergies Medications Medication Sig Dispensed Refills Start Date End Date Status HYDROCHLOROTHIAZIDE ORAL 0 06/05/2013 Active escitalopram (LEXAPRO) 20 Take 20 mg by 0 07/20/2021 Active mg tablet mouth daily. phentermine (ADIPEX-P) 37.5 Take 37.5 mg 0 2 Active mg tablet by mouth daily. Social History Tobacco Use Types Packs/Day Years [...] do you attend evangelical or Never 2021 anabaptist services? Do you [...] place to sleep or slept in a assisted (including now)? Education Answer Date Recorded What is the highest level of school Associate degree: academ [employer] program 08/17/2021 you have completed or the [...] Cervical Cancer Screening 1985 Creatinine Level 1985 HIV Screening 1985 Hepatitis C Screening 1985 Lipid (Cholesterol) 1985 Screening Potassium Level 1985 Sodium Level 1983 COVID-19 [...] Phone Address T ype Group Dates [employer] [id number] 2017-Prese [address] [employer] Medicaid [facility] [facility] [place] [address] [place] [address] [address] [facility] ([facility] [place] [address] Care Teams Solar Installation Crew Supervisor Relationship Specialty Start Date End Date Augusto Robles M.B., B.Ch., B.A.O. PCP - General Family Medicine 02/28/[address] [place] [phone]
--- OUTSIDE RECORDS SUMMARY | 2022-05-17 13:38 | XMS_ITS | Encounter Summary ---
:1985 Author Organization [facility] Address [address] [place] [id number] Care Team Providers Name Role Phone Augusto Robles, B., B.A.O. Primary Care Provider [phone] Encounter Details Date Type Department Care Team Description 09/10/2021 Anesthesia Event Division of Priya Worley APRN, DIRECTOR OF NEUROLOGY, DNAP [address] [place] [phone] [facility], [facility]UROLOG[facility], DNAP [address] [place] [phone] [place], [place] [address] [place] [phone] Anesthesia Record Procedure Summary Procedure Name Responsible Anesthesia Start Anesthesia Stop Time Anesthesiologist Time EGD Ethan Worley APRN, 09/10/21 1213 1255 (ESOPHAGEALGASTRODU DIRECTOR OF NEUROLOGY, DNAP ODENOSCOPY) Events Date Time Event Comment [...] h andoff to the receiving staff during [facility] we 1. Identified the patient 2. [...] Eliana More, Ethan Lewis, (created via procedure DIESEL CRANE OPERATOR, DIRECTOR OF NEUROLOGY, DNAP DIESEL CRANE OPERATOR, CR NA, DNAP documentation); Mask Ventilation: Not [...] or relatives? How often do you attend mormonism or Never 2021 adventist services? Do you belong to any clubs or Yes 08/17/2021 organizations such as mormonism groups, unions, [employer] or athletic groups, or school groups? How [...] the highest level of school Associate degree: [employer]) program 08/17/2021 you have completed or the highest degree you have received? Sex Assigned at Date Recorded Female 08/17/2021 7:54 AM CDT documented as of this encounter OR Notes Anesthesia Postprocedure Evaluation - Ethan Worley APRN, CRNA, DNAP - 09/10/2021 12:55 PM CDT Patient: Dian Mcneill Procedure Summary Date: 09/10/21 Room / Location: Division of Gastroenterology in [place], [place] Anesthesia Start: 1213 Anesthesia Stop: 1255 Procedure: EGD (ESOPHAGEALGASTRODUODENOSCOPY) Diagnosis: Obstruction Gastric Outlet (HCC) Abnormal Computed Tomography Abdomen Scheduled Providers: Eliana More APRN, CRNA, DNAP Responsible Provider: Ethan Worley APRN, CRNA DNAP Anesthesia Type: general ASA Status: 2 [...] Abdomen [R93.5] Location: Division of Gastroenterology in [place], [place] Pertinent components of the patient's history [...] with patient /legal guardian or through an science interpreter. The use of blood products not [...] DNAP Authorized by: Eliana More APR N, CRNA DNAP Patient location during procedure: OR / [...] no complications ATTESTATION STATEMENT Eliana More APRN, CRNA, DNAP ANESTHESIA ORDERA BLES documented in this encounter [...] Intra-op documented in this encounter Care Teams Fashion Model Relationship Specialty Start Date End Date Augusto Robles M.B., B.Ch., B.A.O. PCP - General Family Medicine 02/28/20 [address] [place] [phone] documented as of this encounter
[2022-05-17 21:54] LABS: Chloride* 101 mmol/L (96-114); Sodium* 137 mmol/L (135-149)
[2022-05-17 21:55] LABS: Potassium* 4.1 mmol/L (3.6-5.1)
[2022-05-17 21:57] LABS: Creatinine* 0.6 mg/dL (0.5-1.5); Estimated Glomerular Filt Rate 118 ml/min
[2022-05-17 21:58] LABS: Blood Urea Nitrogen* 15 mg/dL (5-24); Calcium* 9.5 mg/dL (8.4-10.6); Carbon Dioxide* 26 mmol/L (20-32); Glucose* 83 mg/dL (60-115)
== END 2022-05-17 13:36 | disposition home or self-care (01) ==
PROVIDERS: PCP Family Medicine; Visit Provider Nurse Practitioner Family
DX: R82.90 Unspecified abnormal findings in urine (principal)
CPT/HCPCS: 80048; 87086; 87186

== ENCOUNTER 2022-06-07 13:06 | Outpatient (CLI) | payer OTHER, SELFPAY | END 2022-06-07 13:07 | disposition home or self-care (01) | LOC: KYNREF 13:06 | PROVIDERS: PCP Family Medicine; Visit Provider Nurse Practitioner Family | DX: N39.0 Urinary tract infection, site not specified (principal) | CPT/HCPCS: 87086; 87186 ==

== ENCOUNTER 2022-06-29 14:55 | Outpatient (CLI) | payer OTHER, SELFPAY | END 2022-06-29 14:56 | disposition home or self-care (01) | PROVIDERS: PCP Family Medicine; Visit Provider Internal Medicine Nephrology | DX: N39.0 Urinary tract infection, site not specified (principal); N20.0 Calculus of kidney | CPT/HCPCS: 86235; 87086; 87186 ==

== ENCOUNTER 2022-07-01 13:57 | Outpatient (CLI) | payer OTHER, SELFPAY ==
[2022-07-09 06:06] LABS: Hours Collected 24 hr; Total Volume 2100 mL; Urine Supersaturation Interp Abnormal; pH, Urine 6.43 (5.00-7.50)
== END 2022-07-01 13:58 | disposition home or self-care (01) ==
LOC: NFLDREF 13:57
PROVIDERS: PCP Family Medicine; Visit Provider Internal Medicine Nephrology
DX: N39.0 Urinary tract infection, site not specified (principal); N20.0 Calculus of kidney
CPT/HCPCS: 82340; 82436; 82507; 83735; 83945; 83986; 84105; 84133; 84300; 84392; 84560

== ENCOUNTER 2022-07-07 13:50 | Outpatient (CLI) | payer OTHER, SELFPAY ==
--- NOTE | 2022-07-07 14:00 | CRLHL7_ITS ---
For Patients: As a result of the Century Cures Act, medical imaging exams and procedure reports are released immediately into your electronic medical record. You may view this report before your referring provider. If you have questions, please contact your health care provider. Indication: RECURRENT NEPHROLITHIASIS Technique: Routine noncontrast CT abdomen and pelvis Please note that all CT scans at this facility use dose modulation, iterative reconstruction, and/or weight-based dosing when appropriate to reduce radiation dose to as low as reasonably achievable. Comparison: 07/22/2021 Findings: The lung bases are clear. Multiple bilateral renal stones are similar compared to the prior study, measuring up to 4 millimeters. Normal noncontrast enhanced liver. Gallbladder normal. Normal pancreas and spleen. Normal adrenal glands. No bowel obstruction, free air, free fluid or adenopathy. Bladder normal. IUD in the midline of the uterus. Incidental small right ovarian cyst. No adnexal mass. No evidence of ureteral stone or hydroureter. Benign bone islands in the pelvis. No fracture. Impression: Stable bilateral nonobstructing nephrolithiasis. Please note that all CT scans at this facility use dose modulation, iterative reconstruction, and/or weight-based dosing when appropriate to reduce radiation dose to as low as reasonably achievable. Dictated by Marcin Rivera MD @ 07/08/2022 10:55:10 AM (Electronically Signed)
== END 2022-07-07 13:51 | disposition home or self-care (01) ==
LOC: CT 13:51
PROVIDERS: PCP Family Medicine; Visit Provider Internal Medicine Nephrology
DX: N20.0 Calculus of kidney (principal)
CPT/HCPCS: 74176

== ENCOUNTER 2022-07-18 13:55 | Outpatient (CLI) | payer OTHER, SELFPAY ==
[2022-07-18 23:00] LABS: Chloride* 107 mmol/L (96-114)
[2022-07-18 23:01] LABS: Potassium* 3.6 mmol/L (3.6-5.1); Sodium* 139 mmol/L (135-149)
[2022-07-18 23:03] LABS: Creatinine* 0.5 mg/dL (0.5-1.5); Estimated Glomerular Filt Rate 123 ml/min
[2022-07-18 23:04] LABS: Blood Urea Nitrogen* 13 mg/dL (5-24); Calcium* 9.1 mg/dL (8.4-10.6); Carbon Dioxide* 26 mmol/L (20-32); Glucose* 89 mg/dL (60-115)
[2022-07-18 23:11] LABS: C Reactive Protein* < 0.5 mg/dL (0.5-1.0)
[2022-07-18 23:15] LABS: Erythrocyte SedimentationRate* 4 mm/hr (2-20)
[2022-07-21 09:37] LABS: Anti-Nuclear Ab(ANA)IgG ELISA None Detected (None Detected)
[2022-07-22 12:41] LABS: ANCA IFA Pattern None Detected (None Detected); ANCA IFA Titer <1:20 (<1:20); Myeloperoxidase (MPO) Ab, IgG 0 AU/mL (0-19); Serine Proteinase 3 Ab IgG 0 AU/mL (0-19)
== END 2022-07-18 13:56 | disposition home or self-care (01) ==
PROVIDERS: PCP Family Medicine; Visit Provider Family Medicine
DX: I77.6 Arteritis, unspecified (principal)
CPT/HCPCS: 80048; 83516; 85651; 86039; 86140; 86255

== ENCOUNTER 2023-05-22 12:43 | Outpatient (CLI) | payer OTHER, SELFPAY | END 2023-05-22 12:44 | disposition home or self-care (01) | PROVIDERS: PCP Family Medicine; Visit Provider Family Medicine | DX: N39.0 Urinary tract infection, site not specified (principal) | CPT/HCPCS: 80048 ==

== ENCOUNTER 2023-05-23 08:35 | Outpatient (CLI) | payer OTHER, SELFPAY | END 2023-05-23 08:36 | disposition home or self-care (01) | LOC: NFLDREF 05-25 12:10 | PROVIDERS: PCP Family Medicine; Referring Provider Family Medicine; Visit Provider Family Medicine | DX: N39.0 Urinary tract infection, site not specified (principal); N20.0 Calculus of kidney; R53.83 Other fatigue | CPT/HCPCS: 81015; 87086; 87186 ==

== ENCOUNTER 2023-08-02 13:08 | Outpatient (CLI) | payer OTHER, SELFPAY ==
--- NOTE | 2023-08-02 13:00 | CT_ITS ---
Patient: ROSANNA HOFFMAN Facility:?[facility] Patient ID:?[id number] Site Patient ID:?[id number]. Site :?1985 Study:?CT-Abdomen/Pelvis W/O STONE STUDY-08/02/2023 1:29:33 PM Ordering Physician:THOMAS CLEVELAND Final Report: INDICATION: Kidney stone TECHNIQUE: CT abdomen and pelvis without contrast, stone protocol. COMPARISON: 07/07/2022 CT FINDINGS: Kidney/ureters: Several tiny nonobstructing stones in both kidneys, similar in size and number to the previous study. No ureteral stone or hydronephrosis. Liver/gallbladder/bile ducts: The liver is normal in size, shape and attenuation. Gallbladder is normal without visualized stones or inflammation. No biliary dilatation. Spleen/pancreas/adrenal glands: The spleen, adrenal glands and pancreas are within normal limits. GI tract: The bowel is unremarkable. Normal appendix. Abdominal wall/omentum/peritoneum: No free air or significant free fluid. No mass or inflammation. Lymph nodes: No lymphadenopathy. Pelvis: IUD in the uterus. Lower chest: Unremarkable. IMPRESSION: Stable bilateral nephrolithiasis. No obstruction. Please note that all CT scans at this facility use dose modulation, iterative reconstruction, and/or weight-based dosing when appropriate to reduce radiation dose to as low as reasonably achievable. Dictated by Jean Sosa MD @ 08/02/2023 3:34:15 PM Signed by:?Jean Sosa MD @08/02/2023 3:34:15 PM (Electronic Signature)
== END 2023-08-02 13:09 | disposition home or self-care (01) ==
PROVIDERS: PCP Family Medicine; Visit Provider Internal Medicine Nephrology
DX: N20.0 Calculus of kidney (principal)
CPT/HCPCS: 74176; 82340; 82436; 82507; 83735; 83945; 83986; 84105; 84133; 84392; 84560

== ENCOUNTER 2023-08-02 13:48 | Outpatient (CLI) | payer OTHER, SELFPAY | END 2023-08-02 13:49 | disposition home or self-care (01) | PROVIDERS: PCP Family Medicine; Referring Provider Family Medicine; Visit Provider Internal Medicine Nephrology | DX: N39.0 Urinary tract infection, site not specified (principal) | CPT/HCPCS: 82340; 82436; 82507; 83735; 83945; 83986; 84105; 84133; 84300; 84392; 84560 ==

== ENCOUNTER 2024-04-08 13:18 | Outpatient (CLI) | payer OTHER, SELFPAY | END 2024-04-08 13:19 | disposition home or self-care (01) | PROVIDERS: PCP Family Medicine; Visit Provider Family Medicine | DX: R53.83 Other fatigue (principal); R63.4 Abnormal weight loss | CPT/HCPCS: 80048; 80061; 84443; 85025 ==

== ENCOUNTER 2024-09-12 09:50 | Outpatient (CLI) | payer OTHER, SELFPAY | END 2024-09-12 09:51 | disposition home or self-care (01) | LOC: KYNREF 09:51 | PROVIDERS: PCP Family Medicine; Visit Provider Nurse Practitioner Family | DX: R39.9 Unspecified symptoms and signs involving the genitourinary system (principal) | CPT/HCPCS: 81001; 87086 ==